=== PATIENT | male | born 1945 | race Caucasian/White ===

== ENCOUNTER 2019-12-20 07:09 | Outpatient (CLI) | payer MEDICARE, SELFPAY ==
[2019-12-20 08:28] LABS: Alanine Aminotransferase 20 U/L (4-50); Albumin Level 3.5 g/dL (3.5-5.1); Alkaline Phosphatase 110 U/L (38-126); Aspartate Amino Transferase 17 U/L (17-59); Bilirubin,Total 0.3 mg/dL (0.2-1.3); Blood Urea Nitrogen 22 mg/dL (9-20); Calcium 8.7 mg/dL (8.4-10.2); Carbon Dioxide 28 mmol/L (22-30); Chloride 100 mmol/L (98-107); Cholesterol 153 mg/dL (0-200); Estimated Glomerular Filt Rate 59; Glucose 299 mg/dL (75-110); HDL Direct 28 mg/dL; Potassium 3.4 mmol/L (3.4-5.0); Sodium 135 mmol/L (137-145); Triglycerides 185 mg/dL (<150)
[2019-12-20 08:39] LABS: LDL Cholesterol Direct 118 mg/dL
[2019-12-20 08:43] LABS: Hemoglobin A1C 12.8 % (<5.7)
== END 2019-12-20 07:10 | disposition home or self-care (01) ==
PROVIDERS: PCP Family Medicine; Visit Provider Family Medicine
DX: E78.00 Pure hypercholesterolemia, unspecified (principal); E11.65 Type 2 diabetes mellitus with hyperglycemia
CPT/HCPCS: 36415; 80053; 80061; 83036

== ENCOUNTER 2020-12-04 06:46 | Outpatient (CLI) | payer MEDICARE, SELFPAY ==
[2020-12-04 07:42] LABS: Alanine Aminotransferase 20 U/L (4-50); Albumin Level 3.4 g/dL (3.5-5.1); Alkaline Phosphatase 115 U/L (38-126); Anion Gap 10 mmol/L (8-16); Aspartate Amino Transferase 20 U/L (17-59); Bilirubin,Total 0.3 mg/dL (0.2-1.3); Blood Urea Nitrogen 20 mg/dL (9-20); Calcium 8.3 mg/dL (8.4-10.2); Carbon Dioxide 25 mmol/L (22-30); Chloride 98 mmol/L (98-107); Cholesterol 141 mg/dL (0-200); Estimated Glomerular Filt Rate > 60; Glucose 366 mg/dL (75-110); HDL Direct 27 mg/dL; Magnesium 1.7 mg/dL (1.6-2.3); Sodium 133 mmol/L (137-145); Triglycerides 193 mg/dL (<150)
[2020-12-04 07:52] LABS: LDL Cholesterol Direct 84 mg/dL
== END 2020-12-04 06:47 | disposition home or self-care (01) ==
PROVIDERS: PCP Family Medicine; Visit Provider Internal Medicine Interventional Cardiology
DX: E78.00 Pure hypercholesterolemia, unspecified (principal); I50.32 Chronic diastolic (congestive) heart failure; I11.0 Hypertensive heart disease with heart failure
CPT/HCPCS: 36415; 80053; 80061; 83735

== ENCOUNTER 2021-03-08 06:34 | Outpatient (CLI) | payer MEDICARE, SELFPAY ==
[2021-03-08 07:33] LABS: Alanine Aminotransferase 20 U/L (4-50); Albumin Level 3.6 g/dL (3.5-5.1); Alkaline Phosphatase 94 U/L (38-126); Anion Gap 6 mmol/L (8-16); Aspartate Amino Transferase 21 U/L (17-59); Bilirubin,Total 0.3 mg/dL (0.2-1.3); Blood Urea Nitrogen 19 mg/dL (9-20); Carbon Dioxide 25 mmol/L (22-30); Chloride 104 mmol/L (98-107); Estimated Glomerular Filt Rate 59; Glucose 249 mg/dL (75-110); Potassium 3.5 mmol/L (3.4-5.0); Sodium 135 mmol/L (137-145)
[2021-03-08 08:52] LABS: Hemoglobin A1C 11.6 % (<5.7)
== END 2021-03-08 06:35 | disposition home or self-care (01) ==
PROVIDERS: PCP Family Medicine; Visit Provider Family Medicine
DX: E11.65 Type 2 diabetes mellitus with hyperglycemia (principal)
CPT/HCPCS: 36415; 80053; 83036

== ENCOUNTER 2021-03-12 07:47 | Outpatient (CLI) | payer MEDICARE, SELFPAY ==
[2021-03-12 08:29] LABS: Alanine Aminotransferase 19 U/L (4-50); Albumin Level 3.7 g/dL (3.5-5.1); Alkaline Phosphatase 111 U/L (38-126); Anion Gap 9 mmol/L (8-16); Aspartate Amino Transferase 18 U/L (17-59); Bilirubin,Total 0.3 mg/dL (0.2-1.3); Blood Urea Nitrogen 23 mg/dL (9-20); Calcium 9.3 mg/dL (8.4-10.2); Carbon Dioxide 25 mmol/L (22-30); Chloride 101 mmol/L (98-107); Cholesterol 144 mg/dL (0-200); Estimated Glomerular Filt Rate 59; Glucose 327 mg/dL (75-110); HDL Direct 32 mg/dL; Magnesium 1.7 mg/dL (1.6-2.3); Sodium 135 mmol/L (137-145); Triglycerides 186 mg/dL (<150)
[2021-03-12 08:40] LABS: LDL Cholesterol Direct 74 mg/dL
== END 2021-03-12 07:48 | disposition home or self-care (01) ==
PROVIDERS: PCP Family Medicine; Visit Provider Internal Medicine Interventional Cardiology
DX: E78.00 Pure hypercholesterolemia, unspecified (principal); R60.0 Localized edema; I50.32 Chronic diastolic (congestive) heart failure
CPT/HCPCS: 36415; 80053; 80061; 83735

== ENCOUNTER 2021-09-24 06:46 | Outpatient (CLI) | payer MEDICARE, SELFPAY ==
[2021-09-24 08:42] LABS: Anion Gap 11 mmol/L (8-16); Blood Urea Nitrogen 19 mg/dL (9-20); Calcium 8.9 mg/dL (8.4-10.2); Carbon Dioxide 22 mmol/L (22-30); Chloride 103 mmol/L (98-107); Cholesterol 159 mg/dL (0-200); Estimated Glomerular Filt Rate > 60; Glucose 262 mg/dL (65-110); HDL Direct 32 mg/dL; Magnesium 1.7 mg/dL (1.6-2.3); Potassium 3.5 mmol/L (3.4-5.0); Sodium 136 mmol/L (137-145); Triglycerides 137 mg/dL (<150)
[2021-09-24 08:53] LABS: LDL Cholesterol Direct 99 mg/dL
== END 2021-09-24 06:47 | disposition home or self-care (01) ==
LOC: ANHLAB 06:51
PROVIDERS: PCP Family Medicine; Visit Provider Internal Medicine Interventional Cardiology
DX: E78.5 Hyperlipidemia, unspecified (principal); R60.0 Localized edema; I10 Essential (primary) hypertension
CPT/HCPCS: 36415; 80048; 80061; 83735

== ENCOUNTER 2021-11-22 06:41 | Outpatient (CLI) | payer MEDICARE, SELFPAY ==
[2021-11-22 08:21] LABS: Basophils Absolute Auto 0.1 K/mm3 (0.0-0.1); Basophils Percent Auto 1.1 % (0.2-1.2); Eosinophils Absolute Auto 0.2 K/mm3 (0-0.3); Eosinophils Percent Auto 2.2 % (0-4.4); Immature Granulocyte Absolute 0.02 K/mm3 (0.00-0.031); Immature Granulocyte Percent A 0.3 % (0-0.5); Lymphocytes Absolute Auto 1.39 K/mm3 (0.9-3.2); Lymphocytes Percent Auto 18.9 % (18.3-44.2); Mean Corpuscular HGB Conc 32.5 g/dl (32-36); Mean Corpuscular Hemoglobin 27.8 pg (26-34); Mean Corpuscular Volume 85.7 fl (80-100); Mean Platelet Volume 10.3 fl (7.4-10.4); Monocytes Absolute Auto 0.7 K/mm3 (0.1-0.6); Monocytes Percent Auto 9.5 % (2.6-8.5); Platelet Count Result 254 k/mm3 (150-375); Red Blood Count 4.67 M/mm3 (4.6-6.20); Red Cell Distribution Width 14.1 % (11.5-14.5); White Blood Count 7.4 K/mm3 (4.5-10.0)
[2021-11-22 08:27] LABS: Add Urine Microscopic? YES; Appearance Urine Clear (Clear); Bacteria Urine Trace /hpf; Bilirubin Urine Negative (Negative); Blood Urine Negative (Negative); Color Urine Yellow (Yellow); Glucose Urine UA 1+ mg/dL (Negative); Ketones Urine Negative (Negative); Leukocyte Esterase Ur Negative LEU/UL (Negative); Mucus Urine Rare /lpf; Nitrate Urine Negative (Negative); Protein Urine 2+ mg/dL (Negative); RBC Urine 0-2 /hpf (0-2); Specific Grav Ur 1.025 (1.001-1.035); Squamous Epithelial Cell Urine Rare /hpf (Few); WBC Urine 0-3 /hpf
[2021-11-22 08:36] LABS: Alanine Aminotransferase 24 U/L (4-50); Albumin Level 3.6 g/dL (3.5-5.1); Alkaline Phosphatase 108 U/L (38-126); Anion Gap 7 mmol/L (8-16); Aspartate Amino Transferase 22 U/L (17-59); Bilirubin,Total 0.4 mg/dL (0.2-1.3); Blood Urea Nitrogen 22 mg/dL (9-20); Calcium 8.6 mg/dL (8.4-10.2); Carbon Dioxide 24 mmol/L (22-30); Chloride 102 mmol/L (98-107); Cholesterol 138 mg/dL (0-200); Estimated Glomerular Filt Rate 54; Glucose 210 mg/dL (65-110); HDL Direct 31 mg/dL; Potassium 3.7 mmol/L (3.4-5.0); Sodium 133 mmol/L (137-145); Triglycerides 164 mg/dL (<150)
[2021-11-22 08:44] LABS: Creatinine Urine 281.5 mg/dL
[2021-11-22 08:46] LABS: LDL Cholesterol Direct 81 mg/dL
[2021-11-22 08:48] LABS: Hemoglobin A1C 11.1 % (<5.7)
[2021-11-22 09:25] LABS: MALB Creatinine Ratio 310.3 mg/g (0-30); Microalbumin Urine Random 873.5 mg/L (0-16.7)
== END 2021-11-22 06:42 | disposition home or self-care (01) ==
PROVIDERS: PCP Family Medicine; Visit Provider Family Medicine
DX: I11.0 Hypertensive heart disease with heart failure (principal); I50.32 Chronic diastolic (congestive) heart failure; E78.00 Pure hypercholesterolemia, unspecified; E11.65 Type 2 diabetes mellitus with hyperglycemia
CPT/HCPCS: 36415; 80053; 80061; 81001; 82043; 83036; 84443; 85025

== ENCOUNTER 2022-02-04 07:27 | Inpatient (IN) | payer MEDICARE, SELFPAY ==
[2022-02-04] VITALS (62 sets, daily range): BP systolic 146–197; BP diastolic 63–100; PULSE 66–101; RESP 13–22; TEMP 36.6–36.8; O2SAT 92–100
--- NOTE | ~2022-02-04 | CT_ITS ---
EXAMINATION: CT abdomen pelvis w con DATE: 02/04/2022 08:57 INDICATION: Generalized abdominal pain. Nausea, vomiting, and chills. TECHNIQUE: Computed tomography (CT) of the abdomen and pelvis was performed with 100 mL Omnipaque 350 intravenous contrast. Automated exposure control and iterative reconstruction technique were employe d. The dose-length product was 1364.73 mGy-cm. COMPARISON: CT abdomen and pelvis 06/06/2015 FINDINGS: The visualized portions of the lung bases demonstrate mild atelectasis. No pleural effusion . The heart size is normal. No pericardial effusion. The liver, gallbladder, spleen, pancreas, and ad renal glands are normal. There is cortical thinning of the kidneys. There is a 7 mm hyperdense mass i n right kidney upper pole. There are cysts in right kidney measuring up to 14 mm. There is fat strand ing at posterior aspect of right kidney, likely fat necrosis. There is a 1.9 cm mass of left kidney m easuring soft tissue attenuation. There are cysts in left kidney measuring up to 8 mm. There is a 2 m m nonobstructing stone in left kidney. There are brachytherapy seeds in the prostate, which is mildly enlarged. There is diverticulosis of the colon without evidence of diverticulitis. The appendix is n ormal. There are no dilated loops of bowel. There are no pathologically enlarged lymph nodes. There i s no free intraperitoneal fluid. There is a left inguinal hernia containing fat. There is severe lumb ar spondylosis. There is mild chronic anterior wedging of lower thoracic vertebral bodies. IMPRESSION: 1. 7 mm right kidney mass, which may be a hemorrhagic cyst, neoplasm, or focal sparing of cortical th inning. 2. 1.9 cm left kidney mass, which may be a hemorrhagic cyst or neoplasm. Abdomen CT without and with contrast is recommended. Reviewed, dictated and finalized at location B. IMPRESSION: 1. 7 mm right kidney mass, which may be a hemorrhagic cyst, neoplasm, or focal sparing of cortical thinning. 2. 1.9 cm left kidney mass, which may be a hemorrhagic cyst or neoplasm. Abdome n CT without and with contrast is recommended.
--- NOTE | ~2022-02-04 | CT_ITS ---
EXAMINATION: CT abdomen wo/w con DATE: 02/04/2022 11:27 INDICATION: Kidney mass. TECHNIQUE: Computed tomography (CT) of the abdomen was performed without and with 100 mL Omnipaque 35 0 intravenous contrast. Automated exposure control and iterative reconstruction technique were employ ed. The dose-length product was 1918.47 mGy-cm. COMPARISON: CT abdomen and pelvis 02/04/2022 FINDINGS: The visualized portions of the lung bases demonstrate mild atelectasis. No pleural effusion . The heart size is normal. There are coronary artery calcifications. No pericardial effusion. The li vidhya, gallbladder, spleen, pancreas, and adrenal glands are normal. There is a 7 mm enhancing exophyti c mass of right kidney upper pole. There is cortical thinning of the kidneys. There are cysts in the kidneys measuring up to 14 mm on the right. There is fat stranding at posterior aspect of right kidne y, likely fat necrosis. There is a 19 mm hemorrhagic cyst in left kidney. There are no dilated loops of bowel. There are no pathologically enlarged lymph nodes. There is no free intraperitoneal fluid. T here is severe lumbar spondylosis. IMPRESSION: 1. 7 mm exophytic enhancing mass in right kidney upper pole suspicious for renal cell carcinoma. Reviewed, dictated and finalized at location B. IMPRESSION: 1. 7 mm exophytic enhancing mass in right kidney upper pole suspicious for isabel l cell carcinoma.
--- NOTE | ~2022-02-04 | CT_ITS ---
EXAMINATION: CTA brain carotid DATE: 02/04/2022 20:25 INDICATION: Vertigo TECHNIQUE: Computed tomographic angiography (CTA) of the head was performed without and with 100 mL O mnipaque-350 intravenous contrast. CTA of the neck was performed with intravenous contrast. The dose- length product was 1921.46 mGy-cm. Maximum intensity projection and volume rendered 3D-reconstruction s were created by the technologist on a separate workstation. Automated exposure control and iterativ e reconstruction technique were employed. COMPARISON: None. FINDINGS: HEAD CTA: There is no acute intraparenchymal hemorrhage. No evidence of mass lesion. No evidence of a cute infarction. A small area of encephalomalacia in the right occipital lobe is consistent with prio r infarct. There is mild periventricular and subcortical hypodensity probably related to small vessel ischemic disease. There is mild prominence of the sulci and ventricles related to cerebral atrophy. Intracranial calcified cerebral atherosclerosis is noted. There are no extra-axial collections. There is no mass effect or midline shift. Changes in the right globe are likely from ocular lens surgery. The visualized sinuses and left mastoid air cells are well aerated. There is a right mastoid effusion . There is no significant stenosis of the basilar artery or posterior cerebral arteries. There is no si gnificant stenosis of the intracranial internal carotid arteries or the anterior or middle cerebral a rteries. The anterior communicating artery and posterior communicating arteries are normal. The poste rior communicating arteries are diminutive. There is no aneurysm. NECK CTA: The thyroid gland is unremarkable. The submandibular and parotid glands are symmetric. Ther e is no lymphadenopathy. There are no masses identified. A calcified right lower paratracheal lymph n odes consistent with granulomatous disease. The airway is unremarkable. There are no osseous abnormal ities. The superior mediastinum is unremarkable. Extrapleural fat is noted posterior laterally on the left. There is 0% stenosis of the proximal right internal carotid artery relative to normal distal artery l umen diameter (NASCET criteria). There is 0% stenosis of the proximal left internal carotid artery re lative to normal distal artery lumen diameter. IMPRESSION: 1. Area of prior right occipital infarct without acute intracranial abnormality. Unremarkable head CT A. 2. 0% stenosis of the proximal right internal carotid artery relative to normal distal artery lumen d iameter (NASCET criteria). 3. 0% stenosis of the proximal left internal carotid artery relative to normal distal artery lumen di ameter. 4. Right mastoid effusion. Reviewed, dictated and finalized at location F. IMPRESSION: 1. Area of prior right occipital infarct without acute intracranial abnormality . Unremarkable head CTA. 2. 0% stenosis of the proximal right internal carotid artery relative to normal distal artery lumen diameter (NASCET criteria). 3. 0% stenosis of the proximal left internal carotid artery relative to normal distal artery lumen diameter. 4. Right mastoid effusion.
--- NOTE | ~2022-02-04 | US_ITS ---
EXAMINATION: US carotid duplex BI DATE: 02/06/2022 11:15 INDICATION: Acute infarcts TECHNIQUE: Grayscale, color Doppler, and pulsed Doppler images of the cervical carotid arteries were obtained. The degree of vessel stenosis is placed in one of the following categories: normal, <50%, 5 0-69%, >=70% but less than near-occlusion, near-occlusion, or total occlusion. Note that percent sten osis relative to normal distal artery lumen diameter is indirectly measured from velocity measurement s as described by Tan, et al. Radiology 2003; 229:340-346. COMPARISON: None. FINDINGS: RIGHT: The right common carotid artery (CCA) peak systolic velocity (PSV) is 67 cm/s. The right internal car otid artery (ICA) PSV is 52 cm/s. The right ICA end-diastolic velocity (EDV) is 17 cm/s. The right IC A/CCA PSV ratio is 0.8. Grayscale and color Doppler images yield an estimate of <50% diameter reducti on from plaque in the ICA. The external carotid artery (ECA) PSV is 84 cm/s. There is antegrade flow in the right vertebral artery. LEFT: The left CCA PSV is 81 cm/s. The left ICA PSV is 75 cm/s. The left ICA EDV is 20 cm/s. The left ICA/C CA PSV ratio is 0.9. Grayscale and color Doppler images yield an estimate of <50% diameter reduction from plaque in the ICA. The ECA PSV is 70 cm/s. There is antegrade flow in the left vertebral artery. IMPRESSION: 1. <50% stenosis in the right internal carotid artery. 2. <50% stenosis in the left internal carotid artery. Reviewed, dictated and finalized at location A.
--- NOTE | ~2022-02-04 | MR_ITS ---
EXAMINATION: MR brain/brain stem wo con DATE: 02/05/2022 13:43 INDICATION: Vertigo TECHNIQUE: Magnetic resonance imaging (MRI) of the brain and brainstem was performed without intraven ous contrast. Sequences included sagittal and axial T1-weighted SE, axial diffusion-weighted FS SE, a xial T2*-weighted GRE, axial T2-weighted FLAIR, and axial T2-weighted FSE. Apparent diffusion coeffic ient (ADC) maps were created. COMPARISON: Brain CT dated 02/04/2022 FINDINGS: 2 small foci of restricted diffusion at the periphery of the right cerebellar hemisphere consistent w ith acute infarcts. There are a couple small foci of T2 hyperintense encephalomalacia in the left cer ebellar hemisphere consistent with additional chronic infarcts. Small region of encephalomalacia con sistent with chronic infarct at the right occipital lobe. No intracranial hemorrhage or abnormal intr acranial mass lesion. There are scattered areas of nonspecific increased T2-weighted signal intensity in the cerebral white matter, predominantly involving the deep and periventricular white matter. The re are no intraparenchymal signal abnormalities seen on the other pulse sequences. The ventricles are symmetric and normal in size. There are no abnormal extra-axial fluid collections. Flow voids are se en in the cerebral arteries on the T2-weighted sequences consistent with their expected patency. Visu alized orbits and soft tissues are unremarkable. IMPRESSION: 1. A couple small acute infarcts in the right cerebellar hemisphere. 2. Small old infarct in the right occipital lobe and a couple additional small old infarcts in the le ft cerebellar hemisphere. 3. Mild scattered scattered white matter T2 hyperintensity which is within normal limits for age and likely sequela of chronic small vessel ischemic disease. Reviewed, dictated and finalized at location A. IMPRESSION: 1. A couple small acute infarcts in the right cerebellar hemisphere. 2. Small old infarct in the right occipital lobe and a couple additional small old infarcts in the left cerebellar hemisphere. 3. Mild scattered scattered white matter T2 hyperintensity which is within norm al limits for age and likely sequela of chronic small vessel ischemic disease.
--- NOTE | 2022-02-04 07:30 | ECG_ITS ---
Measurements Intervals [place] Rate: 78 P: 0 TX: 190 QRS: -1 QRSD: 92 T: 75 QT: 394 QTc: 451 Interpretive Statements SINUS RHYTHM NONSPECIFIC T-WAVE ABNORMALITY ABNORMAL ECG NO PREVIOUS ECG AVAILABLE FOR COMPARISON Electronically Signed On 02-04-2022 15:08:07 CDT by Bubba Carver M.D.
--- NOTE | 2022-02-04 07:38 | PC.NURSE ---
ERP at bedside. Pt now states he is in fact having abdominal pain and shortness of breath. Respirations non-labored. SpO2 98% on room air.
[2022-02-04 07:39] LABS: Glucose Point of Care 316 mg/dl (65-105)
--- NOTE | 2022-02-04 07:42 | ED.GENADULT ---
HPI - General Adult General Chief complaint: Nausea/Vomiting/Diarrhea Stated complaint: chills, vomiting Time Seen by Provider: 02/04/22 07:29 Source: patient and RN notes reviewed Mode of arrival: ambulatory Limitations: no limitations History of Present Illness HPI narrative: 76-year-old male presenting to the emergency department for evaluation of cute onset of nausea vomiting and generalized abdominal pain. Patient states that he woke up this morning and was having nausea and abdominal pain. Patient states at that time he was also having some shortness of breath. Patient denies any associated chest pain. Patient does report associated dizziness. Patient reports the abdominal pain as being more central. Patient does report prior history of hernia repair as a child. Related Data Allergies Allergy/AdvReac Type Severity Reaction Status Date / Time No Known Allergies Allergy Verified 02/04/22 14:45 Review of Systems Review of Systems: CONSTITUTIONAL: Generalized weakness EYES: Denies visual changes, redness, or discharge. ENT: Denies rhinorrhea, congestion, sore throat, or otalgia. CARDIOVASCULAR: Denies chest pain, palpitations, or edema. RESPIRATORY: Denies cough or dyspnea. GASTROINTESTINAL: Nausea vomiting without diarrhea. He does have generalized abdominal pain. GENITOURINARY: Denies dysuria or hematuria. SKIN: Denies rash or itching. MUSCULOSKELETAL: Denies back pain, joint pain, or myalgia. NEUROLOGIC: Denies headache, numbness, or weakness. [facility] Family History Family History (Updated 02/04/22 @ 15:07 by Naty Sol RN) Mother Cerebrovascular accident Sibling Cancer Father Lung cancer Social History Social History Smoking status: Never smoker Second hand tobacco smoke exposure: Yes Alcohol intake: never Substance use: never Substance use type: does not use Spiritual care concerns: No Exam Narrative: APPEARANCE: Well appearing, no pain, no distress, well-nourished. HEAD: normocephalic, atraumatic. EYES: PERRLA/EOMI, conjunctivae clear. NOSE: Normal no drainage NECK: Supple. No adenopathy, no masses. RESPIRATORY: Airway patent, respirations nonlabored. Clear to auscultation bilaterally, no rales, rhonchi, wheezing. CARDIOVASCULAR: Regular rate and rhythm without murmurs rubs or gallops. ABDOMINAL: Generalized abdominal pain. Normal bowel sounds. No peritonitis. MUSCULOSKELETAL: Moves all extremities. Strength/ROM intact, No edema, No calf tenderness. NEURO: Alert. Cranial nerves II through XII intact. grossly intact. SKIN: Warm, dry. Normal Color Course Course Emergency Course: CT scan showed a renal mass concerning for adenocarcinoma. No other acute intra-abdominal findings. Attempted to ambulate the patient but he felt too weak. Case discussed with hospitalist and patient was admitted for generalized weakness. Vital Signs Vital signs: Vital Signs Temperature 97.8 F 02/04/22 07:31 Pulse Rate 80 02/04/22 07:31 Respiratory Rate 17 02/04/22 07:31 Pulse Oximetry 97 02/04/22 07:31 Temperature 97.8 F 02/04/22 07:31 Pulse Rate 83 02/04/22 14:01 Respiratory Rate 18 02/04/22 14:01 Blood Pressure 158/81 H 02/04/22 14:01 Pulse Oximetry 95 02/04/22 14:01 Medical Decision Making Vital Signs Vital Signs: Vital Signs Temperature 97.8 F 02/04/22 07:31 Pulse Rate 80 02/04/22 07:31 Respiratory Rate 17 02/04/22 07:31 Pulse Oximetry 97 02/04/22 07:31 Temperature 97.8 F 02/04/22 07:31 Pulse Rate 83 02/04/22 14:01 Respiratory Rate 18 02/04/22 14:01 Blood Pressure 158/81 H 02/04/22 14:01 Pulse Oximetry 95 02/04/22 14:01 Lab Data Lab results reviewed: Yes I reviewed the patient's lab results. Result diagrams: 02/04/22 07:38 02/04/22 07:38 Labs: Lab Results 02/04/22 02/04/22 02/04/22 Range/Units 07:37 07:38 07:38 WBC 8.4 (4.5-10.0) K/mm3 RBC 5.28 (4.6-6.20) M/mm3
[2022-02-04] MEDS: HYDROmorphone HCL INJ (*CRX) 1 MG/ML SYR 0.5 MG IV PUSH (07:45)
[2022-02-04] MEDS: ONDANSETRON INJ 4 MG/2 ML VIAL IV PUSH ×2 (07:45→15:14)
[2022-02-04] MEDS: SODIUM CHLORIDE 0.9% IV 500 ML 999 ML IV CONT (07:48)
[2022-02-04 08:00] LABS: Basophils Absolute Auto 0.1 K/mm3 (0.0-0.1); Basophils Percent Auto 0.7 % (0.2-1.2); Eosinophils Absolute Auto 0.1 K/mm3 (0-0.3); Eosinophils Percent Auto 1.1 % (0-4.4); Hematocrit 43.9 % (42.0-52.0); Hemoglobin 14.6 g/dL (14.0-18.0); Immature Granulocyte Absolute 0.03 K/mm3 (0.00-0.031); Immature Granulocyte Percent A 0.4 % (0-0.5); Lymphocytes Absolute Auto 1.55 K/mm3 (0.9-3.2); Lymphocytes Percent Auto 18.4 % (18.3-44.2); Mean Corpuscular HGB Conc 33.3 g/dl (32-36); Mean Corpuscular Hemoglobin 27.7 pg (26-34); Mean Corpuscular Volume 83.1 fl (80-100); Monocytes Absolute Auto 0.7 K/mm3 (0.1-0.6); Monocytes Percent Auto 7.7 % (2.6-8.5); Neutrophils Absolute Auto 6.1 K/mm3 (1.3-6.7); Neutrophils Percent Auto 71.7 % (45.5-73.1); Platelet Count Result 301 k/mm3 (150-375); Red Blood Count 5.28 M/mm3 (4.6-6.20); Red Cell Distribution Width 13.2 % (11.5-14.5); White Blood Count 8.4 K/mm3 (4.5-10.0)
[2022-02-04 08:17] LABS: Alanine Aminotransferase 25 U/L (4-50); Albumin Level 4.1 g/dL (3.5-5.1); Alkaline Phosphatase 123 U/L (38-126); Anion Gap 10 mmol/L (8-16); Aspartate Amino Transferase 25 U/L (17-59); Bilirubin,Total 0.4 mg/dL (0.2-1.3); Blood Urea Nitrogen 21 mg/dL (9-20); Calcium 8.8 mg/dL (8.4-10.2); Carbon Dioxide 23 mmol/L (22-30); Chloride 104 mmol/L (98-107); Estimated CRCL calculation 68 ml/min; Estimated Glomerular Filt Rate > 60; Glucose 303 mg/dL (65-110); Potassium 3.8 mmol/L (3.4-5.0); Sodium 137 mmol/L (137-145)
[2022-02-04 08:36] LABS: Influenza A QL RT-PCR Negative (Negative); Influenza B QL RT-PCR Negative (Negative); SARS-CoV-2 RNA PCR Negative
[2022-02-04 08:54] LABS: Add Urine Microscopic? YES; Appearance Urine Clear (Clear); Bilirubin Urine Negative (Negative); Blood Urine Negative (Negative); Color Urine Yellow (Yellow); Glucose Urine UA 3+ mg/dL (Negative); Ketones Urine Trace mg/dL (Negative); Leukocyte Esterase Ur Negative LEU/UL (Negative); Mucus Urine Rare /lpf; Nitrate Urine Negative (Negative); Protein Urine 2+ mg/dL (Negative); RBC Urine 0-2 /hpf (0-2); Specific Grav Ur 1.023 (1.001-1.035); Urobilinogen Urine Negative mg/dL (<2.0); WBC Urine 0-3 /hpf
--- NOTE | 2022-02-04 09:24 | PC.NURSE ---
Xray at bedside.
--- NOTE | 2022-02-04 11:05 | PC.NURSE ---
CT states they were instructed to wait [address] before taking pt for repeat. lead technical writer states they will take pt in approximately 30 minutes.
--- NOTE | 2022-02-04 12:19 | PC.NURSE ---
FSBS 216.Dr Vu made aware. Insulin held per verbal order.
[2022-02-04 12:21] LABS: Glucose Point of Care 216 mg/dl (65-105)
--- NOTE | 2022-02-04 14:51 | ADMGEN ---
This patient, Dasha Pedersen, was admitted to Medical Room 253-01. Patient/family oriented to hospital policies and general routines including ID bracelet, bed and alarms, visiting hours, pain management, procedures, bathroom and other care routines, personal items, smoking policy, room service/diet, and visiting hours. Information on how to activate the Rapid Response Team has been discussed. Patient/Family are encouraged to report perceived risks to care and to ask questions if they do not understand what they are told or what they should do.
[2022-02-04] MEDS: SODIUM CHLORIDE 0.9% IV 1,000 ML 75 ML IV CONT (15:14)
[2022-02-04 16:24] LABS: Glucose Point of Care 211 mg/dl (65-105)
[2022-02-04] MEDS: ACETAMINOPHEN 325 MG TABLET 650 MG PO (17:38)
--- NOTE | 2022-02-04 19:00 | PM.IMHP ---
H&P: HPI History of Present Illness Date/Time: 02/04/22 19:00 Chief Complaint: Nausea, vomiting, weakness. Narrative: This is a pleasant 76-year-old male with history of stroke in 2000, hypertension, dyslipidemia, and insulin-dependent diabetes who presented to the emergency department via private vehicle from home for evaluation of nausea, vomiting, and weakness. He felt fine yesterday and spent most of the day in his home office doing work. He went to [employer] for dinner however he only had a couple of bites of burger and a few [place] fries before he threw them away as they just did not taste right. He felt okay when he went to bed but was wakened from sleep around midnight with extreme nausea. He got up to the bathroom but had difficulties getting there ?because I was bumping into everything? but when he finally made to the bathroom where he reports having a pretty significant amount of emesis and 1 loose stool. He has difficulties describing what exactly was happening when he was walking to the bathroom and he denies feeling significantly lightheaded and it sounds as though he more so was suffering from vertigo. He got up several times thereafter with nausea and vomiting and reports vomiting undigested food from the night before early this morning. He also reports diffuse, mild abdominal discomfort that he cannot further describe and that continues. This morning he got up at around 06:00 and upon getting out of bed he slid onto his buttocks onto the floor because he was off balance and fell weak. He was able to get himself up however and in fact drove himself to the hospital. He was afebrile on arrival to the emergency department. Blood pressures had been consistently elevated in the 150s to 180 systolic since that time. Labs were essentially unremarkable aside from hyperglycemia with a random glucose of 303. Urine showed 2+ protein and 3+ glucose. He tested negative for influenza and SARS-CoV-[address] of the abdomen and pelvis showed a 7 mm right kidney mass and 1.9 cm left kidney mass, and a subsequent CT with and without contrast showed a 7 mm exophytic enhancing mass in the right kidney upper pole suspicious for renal cell carcinoma. Despite these incidental findings and a relatively normal workup otherwise, he was unable to be discharged home as he continues to feel ?just not right and a little out of it.? Unfortunately he has difficulties further qualifying that. At this time he feels weak and tired. When I had him go from a supine to sitting position he told me ?I am just not in a good way right now and not feeling good? but again he could not describe any specific symptoms. He denies headache, neck ache, visual changes, slurred speech, facial droop, focal weakness, paresthesias, chest pain, pleuritic pain, palpitations, syncope, near syncope, hematemesis, melena, hematochezia, and dysuria. Review of Systems Review of Systems: Twelve systems were reviewed. No sick contacts. Reports mild sinus congestion in the morning which clears throughout the day. No dysphagia or concerns for aspiration. He had a colonoscopy with polypectomy this past Monday but he has not noticed any blood in his stool since that time. No fever, chills, or sweats. His GERD is not any different than baseline. Reports chronic tinnitus which is unchanged. No exertional chest pain. He reports a nondescript discomfort throughout his abdomen up into the throat but again states that is different than his GERD. No blurry vision, polydipsia, or polyuria. Except as documented, all other systems were reviewed and are negative. [facility] Past Medical History Medical History (Updated 02/04/22 @ 20:37 by Yoly Heart PA-C) Cerebrovascular accident (10/2000) Gastric ulcer Gastroesophageal reflux disease Hypertension Insulin dependent type 2 diabetes mellitus Irritable bowel syndrome Obstructive sleep apnea on CPAP Osteoarthritis Prostate cancer Status post radiation. Treadmill stress test negativ
[2022-02-04 20:12] LABS: Lipase 37 U/L (23-300)
[2022-02-04 20:25] LABS: Troponin I 0.018 ng/mL (0.000-0.034)
[2022-02-04 20:28] LABS: Glucose Point of Care 169 mg/dl (65-105)
[2022-02-04 20:29] LABS: Hemoglobin A1C 9.7 % (<5.7)
[2022-02-04] MEDS: amLODIPine BESYLATE 2.5 MG TABLET PO (21:14)
[2022-02-04] MEDS: LOSARTAN POTASSIUM 50 MG TABLET PO (21:15)
[2022-02-04] MEDS: METOPROLOL SUCCINATE EXT REL 50 MG TABCR 150 MG PO (21:36)
[2022-02-04 23:12] LABS: Glucose Point of Care 157 mg/dl (65-105)
[2022-02-04 23:58] LABS: Troponin I 0.022 ng/mL (0.000-0.034)
[2022-02-05] VITALS (14 sets, daily range): BP systolic 134–157; BP diastolic 55–81; PULSE 60–85; RESP 16–20; TEMP 35.9–36.7; O2SAT 96–98
[2022-02-05 02:23] LABS: Hematocrit 40.1 % (42.0-52.0); Mean Corpuscular HGB Conc 32.4 g/dl (32-36); Mean Corpuscular Hemoglobin 27.7 pg (26-34); Mean Corpuscular Volume 85.3 fl (80-100); Mean Platelet Volume 10.2 fl (7.4-10.4); Platelet Count Result 272 k/mm3 (150-375); Red Cell Distribution Width 13.4 % (11.5-14.5); White Blood Count 8.6 K/mm3 (4.5-10.0)
[2022-02-05 02:42] LABS: Anion Gap 7 mmol/L (8-16); Blood Urea Nitrogen 14 mg/dL (9-20); Calcium 8.2 mg/dL (8.4-10.2); Carbon Dioxide 23 mmol/L (22-30); Chloride 104 mmol/L (98-107); Estimated CRCL calculation 75 ml/min; Estimated Glomerular Filt Rate > 60; Glucose 178 mg/dL (65-110); Magnesium 1.8 mg/dL (1.6-2.3); Potassium 3.6 mmol/L (3.4-5.0); Sodium 134 mmol/L (137-145)
[2022-02-05 02:49] LABS: Troponin I 0.024 ng/mL (0.000-0.034)
[2022-02-05 07:52] LABS: Glucose Point of Care 200 mg/dl (65-105)
[2022-02-05] MEDS: CHLORTHALIDONE 25 MG TABLET PO (07:56)
[2022-02-05] MEDS: LOSARTAN POTASSIUM 50 MG TABLET PO ×2 (07:56→16:21)
[2022-02-05] MEDS: GLIMEPIRIDE 2 MG TABLET 4 MG PO (07:56)
[2022-02-05] MEDS: calcium polycarbophiL 625 MG TABLET PO ×2 (07:56→16:20)
[2022-02-05] MEDS: ATORVASTATIN 40 MG TABLET PO (07:57)
[2022-02-05] MEDS: POTASSIUM CHLORIDE 10 MEQ TABLET.ER PO (07:57)
[2022-02-05] MEDS: amLODIPine BESYLATE 2.5 MG TABLET PO ×2 (07:57→11:19)
[2022-02-05] MEDS: PANTOPRAZOLE 40 MG TABLET PO (07:57)
[2022-02-05] MEDS: ASPIRIN 81 MG CHEWABLE TABLET PO (07:57)
[2022-02-05] MEDS: LORATADINE 10 MG TABLET PO (07:58)
[2022-02-05] MEDS: FERROUS SULFATE 324 MG TABLET PO ×2 (07:58→16:20)
[2022-02-05] MEDS: METOPROLOL SUCCINATE EXT REL 50 MG TABCR 150 MG PO (07:58)
[2022-02-05] MEDS: INSULIN GLARGINE (*BKC) 100 UNITS/ML 48 UNITS SUB-Q (08:01)
[2022-02-05] MEDS: ONDANSETRON INJ 4 MG/2 ML VIAL IV PUSH ×2 (09:51→20:40)
--- NOTE | 2022-02-05 10:36 | PC.NURSE ---
ortho bp's done this shift, supine 97% ra 71 144/96, sitting 99% ra 71 175/89, and standing 186/97 77 97% ra
--- NOTE | 2022-02-05 11:02 | PM.IMPN ---
Progress Note: A&P Assessment and Plan (1) Vertigo: Code(s): R42 - Dizziness and giddiness Status: Acute Assessment and Plan: The patient is having a difficult time describing exactly what he is feeling but it sounds as though he has had vertigo since he was wakened from sleep last night around midnight. When I had him go from a supine to a sitting position he reported recurrence of symptoms and I had to lie him back down and he felt better. he has not noted to be tachycardic during the orthostatic vitals however is noted to be on metoprolol which might have mass to this. CT head and CTA of brain and carotids were unremarkable. Will further evaluate this for posterior circulation issue with MRI brain. continue to monitor on telemetry no arrhythmias noted Orthostatic was negative his bit hypertensive rather Add meclizine for possible labyrinthitis related to his chronic sinus issues. CT head does note right mastoid effusion. Will empirically give antibiotics for upper respiratory /sinus infection Compazine p.r.n. for nausea (2) Nausea & vomiting: Qualifiers: Vomiting type: unspecified Qualified Code(s): R11.2 - Nausea with vomiting, unspecified Code(s): R11.2 - Nausea with vomiting, unspecified Status: Acute Assessment and Plan: Patient reports that his dinner last night from a local restaurant did not taste right and he only had a few bites before throwing out. I suppose his nausea and vomiting could be related to under prepared or poorly prepared food. Conversely if he indeed is having significant vertigo this could also be causing the nausea and vomiting. Continue supportive care. CT abdomen and pelvis did show any acute findings except for right renal mass 7 mm in size needs to followed up as an outpatient basis with urologist (3) General weakness: Code(s): R53.1 - Weakness Status: Acute Assessment and Plan: Related to above. No focal findings on exam. Initiate fall precautions. Will order PT OT (4) Renal mass: Code(s): N28.89 - Other specified disorders of kidney and ureter Status: Acute Assessment and Plan: CT shows a 7 mm exophytic enhancing mass in the right kidney upper pole suspicious for renal cell carcinoma. Will need follow-up with Urology as an outpatient. (5) Insulin dependent type 2 diabetes mellitus: Code(s): E11.9 - Type 2 diabetes mellitus without complications; Z79.4 - [facility] (current) use of insulin Status: Acute Assessment and Plan: Random glucose this morning was over 300. Continue basal insulin. Initiate sliding scale insulin, Accu-Cheks, and hypoglycemic protocol. A1c at 9.7 (6) Hypertension: Code(s): I10 - Essential (primary) hypertension Status: Acute Assessment and Plan: Pressures have been running high consistently since arrival. He did not receive his morning antihypertensives, however. Continue home medication and monitor closely. Adjustments will be made accordingly depending on his trends. Will increase amlodipine to 5 mg Hold chlorthalidone due to possible dehydration (7) Obstructive sleep apnea on CPAP: Code(s): G47.33 - Obstructive sleep apnea (adult) (pediatric); Z99.89 - Dependence on other enabling machines and devices Status: Acute Assessment and Plan: CPAP will be provided for the patient to use while hospitalized. (8) Gastroesophageal reflux disease: Code(s): K21.9 - Gastro-esophageal reflux disease without esophagitis Status: Acute Assessment and Plan: Patient denies that his symptoms now are similar to those he experiences with GERD. CT showed no acute findings. (9) Abdominal pain: Code(s): R10.9 - Unspecified abdominal pain Status: Acute Assessment and Plan: Patient has mild tenderness to palpation throughout the abdomen without focal findings. CT showed no acute findings
[2022-02-05] MEDS: MECLIZINE HCL 25 MG TABLET PO ×2 (11:18→16:21)
[2022-02-05] MEDS: SODIUM CHLORIDE 0.9% IV 1,000 ML 75 ML IV CONT (11:18)
--- NOTE | 2022-02-05 11:56 | PC.NURSE ---
MRI screening form completed for MRI w and wo contrast. Pt states has had reaction to contrast dye. Pt will need to be premedicated prior to going down for MRI, Md Santos called and informed.
[2022-02-05] MEDS: PROCHLORPERAZINE EDISYLATE 10 MG/2 ML VIAL IV PUSH (12:06)
[2022-02-05 12:22] LABS: Glucose Point of Care 188 mg/dl (65-105)
--- NOTE | 2022-02-05 12:46 | PC.NURSE ---
pt started on compazine and meclizine this shift for c/o dizziness and nausea.
[2022-02-05 12:53] LABS: Lactic Acid Reflex 3.1 mmol/L (0.7-2.1)
--- NOTE | 2022-02-05 13:10 | PC.NURSE ---
Pt at MRI
--- NOTE | 2022-02-05 13:13 | PCOTNOTE ---
Attempted OT evaluation; pt. out of room for testing. Will attempt again tomorrow as able.
--- NOTE | 2022-02-05 13:55 | PC.NURSE ---
Pt back from MRI, NS 500ml/hr bolus ordered, increase NS continuous IV infusing to 100ml/hr, redraw lactic at 1600 per MD Santos r/t elevated lactic acid 3.1 at 1200 today.
[2022-02-05] MEDS: SODIUM CHLORIDE 0.9% IV 500 ML IV CONT (14:55)
[2022-02-05] MEDS: ACETAMINOPHEN 325 MG TABLET 650 MG PO ×2 (15:00→20:38)
--- NOTE | 2022-02-05 15:24 | PC.NURSE ---
Reported MRI results to MD Santos, 1.A couple small acute infarcts in the right cerebellar hemisphere. 2. Small old infarct in the right occipital lobe and a couple additional small old infarcts in the left cerebellar hemisphere. 3. Mild scattered scattered white matter T2 hyperintensity which is within normal limits for age and likely sequela of chronic small vessel ischemic disease.
[2022-02-05 15:38] LABS: Reflex Lactic Acid Yes or No Add Lactic
--- NOTE | 2022-02-05 15:40 | PC.NURSE ---
A couple small acute infarcts in the right cerebellar hemisphere. 2. Small old infarct in the right occipital lobe and a couple additional small old infarcts in the left cerebellar hemisphere. 3. Mild scattered scattered white matter T2 hyperintensity which is within normal limits for age and likely sequela of chronic small vessel ischemic disease. Reported MRI of brain to MD Baez, N.o plavix 75 mg po daily start today, carotic dopplers, Ct angio of brain, and echocardiogram, discussed ordered with MD Santos, MD Santos stated ct angio of brain and echocardiogram already done 02/04/22.
[2022-02-05] MEDS: CLOPIDOGREL BISULFATE 75 MG TABLET PO (15:49)
--- NOTE | 2022-02-05 16:21 | PC.NURSE ---
mri resulted called family to inform them, MD Santos came to room to speech with family per family request, family had left.
[2022-02-05 16:22] LABS: Lactic Acid Reflex 1.9 mmol/L (0.7-2.1)
[2022-02-05 16:49] LABS: Glucose Point of Care 129 mg/dl (65-105)
[2022-02-05] MEDS: AMOXICILLIN/CLAVULANATE K 875-125 MG TAB 1 TABLET PO (20:38)
[2022-02-05] MEDS: FLUTICASONE PROPIONATE 0.05% NA SPR 16 GM BTL (*BKC) 1 SPRAY NASAL (20:38)
[2022-02-05] MEDS: INSULIN GLARGINE (*BKC) 100 UNITS/ML 25 UNITS SUB-Q (20:43)
[2022-02-05 21:21] LABS: Glucose Point of Care 141 mg/dl (65-105)
[2022-02-06] VITALS (18 sets, daily range): BP systolic 142–188; BP diastolic 59–75; PULSE 61–83; RESP 18–20; TEMP 36.1–37.3; O2SAT 95–98
[2022-02-06] MEDS: SODIUM CHLORIDE 0.9% IV 1,000 ML 100 ML IV CONT ×2 (00:07→10:27)
[2022-02-06 06:28] LABS: Basophils Absolute Auto 0.1 K/mm3 (0.0-0.1); Basophils Percent Auto 0.6 % (0.2-1.2); Eosinophils Absolute Auto 0.1 K/mm3 (0-0.3); Eosinophils Percent Auto 0.8 % (0-4.4); Hematocrit 40.3 % (42.0-52.0); Hemoglobin 13.5 g/dL (14.0-18.0); Immature Granulocyte Absolute 0.02 K/mm3 (0.00-0.031); Immature Granulocyte Percent A 0.2 % (0-0.5); Lymphocytes Absolute Auto 1.31 K/mm3 (0.9-3.2); Lymphocytes Percent Auto 13.6 % (18.3-44.2); Mean Corpuscular HGB Conc 33.5 g/dl (32-36); Mean Corpuscular Hemoglobin 27.9 pg (26-34); Mean Corpuscular Volume 83.3 fl (80-100); Mean Platelet Volume 10.2 fl (7.4-10.4); Monocytes Absolute Auto 0.8 K/mm3 (0.1-0.6); Monocytes Percent Auto 8.3 % (2.6-8.5); Neutrophils Absolute Auto 7.4 K/mm3 (1.3-6.7); Neutrophils Percent Auto 76.5 % (45.5-73.1); Platelet Count Result 267 k/mm3 (150-375); Red Blood Count 4.84 M/mm3 (4.6-6.20); Red Cell Distribution Width 13.3 % (11.5-14.5); White Blood Count 9.7 K/mm3 (4.5-10.0)
[2022-02-06 06:38] LABS: Alanine Aminotransferase 18 U/L (4-50); Albumin Level 3.2 g/dL (3.5-5.1); Alkaline Phosphatase 85 U/L (38-126); Anion Gap 5 mmol/L (8-16); Aspartate Amino Transferase 22 U/L (17-59); Bilirubin,Total 0.3 mg/dL (0.2-1.3); Blood Urea Nitrogen 16 mg/dL (9-20); Calcium 8.1 mg/dL (8.4-10.2); Carbon Dioxide 26 mmol/L (22-30); Chloride 105 mmol/L (98-107); Estimated CRCL calculation 66 ml/min; Estimated Glomerular Filt Rate > 60; Glucose 109 mg/dL (65-110); Magnesium 1.9 mg/dL (1.6-2.3); Potassium 3.2 mmol/L (3.4-5.0); Sodium 136 mmol/L (137-145)
[2022-02-06 08:09] LABS: Glucose Point of Care 132 mg/dl (65-105)
[2022-02-06] MEDS: amLODIPine BESYLATE 5 MG TABLET PO ×2 (08:52→16:38)
[2022-02-06] MEDS: calcium polycarbophiL 625 MG TABLET PO ×2 (08:53→16:39)
[2022-02-06] MEDS: ASPIRIN 81 MG CHEWABLE TABLET PO (08:53)
[2022-02-06] MEDS: CHLORTHALIDONE 25 MG TABLET PO (08:53)
[2022-02-06] MEDS: ATORVASTATIN 40 MG TABLET PO (08:53)
[2022-02-06] MEDS: FERROUS SULFATE 324 MG TABLET PO ×2 (08:54→16:39)
[2022-02-06] MEDS: LOSARTAN POTASSIUM 50 MG TABLET PO ×2 (08:55→16:39)
[2022-02-06] MEDS: METOPROLOL SUCCINATE EXT REL 50 MG TABCR 150 MG PO (08:55)
[2022-02-06] MEDS: MECLIZINE HCL 25 MG TABLET PO ×3 (08:55→16:39)
[2022-02-06] MEDS: GLIMEPIRIDE 2 MG TABLET 4 MG PO (08:55)
[2022-02-06] MEDS: FLUTICASONE PROPIONATE 0.05% NA SPR 16 GM BTL (*BKC) 1 SPRAY NASAL ×2 (08:56→20:59)
[2022-02-06] MEDS: PANTOPRAZOLE 40 MG TABLET PO (08:56)
[2022-02-06] MEDS: POTASSIUM CHLORIDE 10 MEQ TABLET.ER PO (08:56)
[2022-02-06] MEDS: INSULIN GLARGINE (*BKC) 100 UNITS/ML 48 UNITS SUB-Q (09:03)
[2022-02-06] MEDS: AMOXICILLIN/CLAVULANATE K 875-125 MG TAB 1 TABLET PO ×2 (11:24→20:59)
[2022-02-06] MEDS: CLOPIDOGREL BISULFATE 75 MG TABLET PO (11:24)
[2022-02-06] MEDS: LORATADINE 10 MG TABLET PO (11:27)
[2022-02-06 11:35] LABS: Glucose Point of Care 99 mg/dl (65-105)
--- NOTE | 2022-02-06 11:36 | WPDNEURCNPN ---
Assessment and Plan Additional Plan 1 positional vertigo 2 possibility of orthostatic hyper 3 consider the possibility of posterior circulation dysfunction for which studies have been ordered and further recommendation: Consult date: 02/06/22 HPI: Dasha Pedersen is a 76 year old maleAdmitted to the hospital through the emergency room acute onset nausea vomiting and generalized abdominal pain reported in the ER he woke up in the morning with these complaints he was also experiencing some difficulties in breathing but gave no history of associated chest discomfort, dizzy, he gave no history of being allergic to any medication , his past history was consistent with no alcohol no smoking, initial evaluation documented normal vital signs fairly nonfocal neurological examination but labs investigations documented hypoglycemia and abdomen and pelvis CT scan 7mm right kidney mass raising the possibility of hemorrhagic cyst versus neoplasm or focal cortical thinning in addition to 1.9cm left kidney mass again with the same unsure, patient has ongoing history of 1. Hypertension 2. Dyslipidemia 3. Insulin-dependent diabetes mellitus For GERD with history of gastric ulcer 5 irritable bowel syndrome 6 obstructive sleep apnea on CPAP 7 osteoarthritis 8 history of prostate cancer patient has undergone multiple surgeries including bilateral total knee replacement.. , Review of Systems Review of Systems: All systems reviewed & are unremarkable except as noted in HPI and below PMFSH Past Medical History Medical History Cerebrovascular accident (10/2000) Gastric ulcer Gastroesophageal reflux disease Hypertension Insulin dependent type 2 diabetes mellitus Irritable bowel syndrome Obstructive sleep apnea on CPAP Osteoarthritis Prostate cancer Status post radiation. Treadmill stress test negative for angina pectoris (09/2002) Surgical History Surgical History History of arthroscopy of both knees History of bilateral knee replacement History of colonoscopy with polypectomy History of hemorrhoidectomy History of inguinal hernia repair History of tonsillectomy Family History Family History Mother Cerebrovascular accident Sibling Cancer Father Lung cancer Diabetes mellitus Social History Social History Social History: Surrogate decision maker: Nitesh Pedersen, son. Code status: Full code. Smoking status: Never smoker Second hand tobacco smoke exposure: Yes Alcohol intake: never Substance use: never Substance use type: does not use Additional living arrangements comments: Lives in his own home in [place]. Additional occupation/education comments: [employer]. Spiritual care concerns: No Meds Home Medications and Allergies Home Medications Medication Instructions Recorded Confirmed Type amlodipine 2.5 mg PO DAILY 02/04/22 02/04/22 History aspirin [Baby Aspirin] 81 mg PO DAILY 02/04/22 02/04/22 History atorvastatin 40 mg PO DAILY 02/04/22 02/04/22 History calcium polycarbophil [FiberCon] 625 mg PO BID 02/04/22 02/04/22 History cetirizine [Zyrtec] 10 mg PO DAILY 02/04/22 02/04/22 History chlorthalidone 25 mg PO DAILY 02/04/22 02/04/22 History esomeprazole magnesium 40 mg PO DAILY 02/04/22 02/04/22 History ferrous sulfate 325 mg PO BID 02/04/22 02/04/22 History glimepiride 4 mg PO DAILY 02/04/22 02/04/22 History insulin degludec [Tresiba 25 unit SUBCUT HS 02/04/22 02/04/22 History FlexTouch U-200] insulin degludec [Tresiba 48 unit SUBCUT DAILY 02/04/22 02/04/22 History FlexTouch U-200] losartan 50 mg PO BID 02/04/22 02/04/22 History metoprolol succinate 150 mg PO DAILY 02/04/22 02/04/22 History potassium chloride 10 meq PO DAILY 02/04/22 02/04/22 History semaglutide [Ozempic] 1 mg SUBCUT WEEKLY 02/04/22 04
--- NOTE | 2022-02-06 13:51 | PM.IMPN ---
Progress Note: A&P Assessment and Plan (1) Vertigo: Code(s): R42 - Dizziness and giddiness Status: Acute Assessment and Plan: The patient is having a difficult time describing exactly what he is feeling but it sounds as though he has had vertigo since he was wakened from sleep last night around midnight. When I had him go from a supine to a sitting position he reported recurrence of symptoms and I had to lie him back down and he felt better. he has not noted to be tachycardic during the orthostatic vitals however is noted to be on metoprolol which might have mass to this. CT head and CTA of brain and carotids were unremarkable. Will further evaluate this for posterior circulation issue with MRI brain. continue to monitor on telemetry no arrhythmias noted Orthostatic was negative his bit hypertensive rather Add meclizine for possible labyrinthitis related to his chronic sinus issues. CT head does note right mastoid effusion. Will empirically give antibiotics for upper respiratory /sinus infection Compazine p.r.n. for nausea MRI brain did come back positive for cerebellar stroke in the right cerebellar hemisphere likely causing his vertigo Stroke workup in process echocardiogram pending CTA did not show any significant carotid stenosis Carotid Doppler less than 50% bilaterally On aspirin and Plavix On statin will check his lipid profile in a.m. Neurology has been consulted and is following Will continue to monitor for elevated intracranial pressure due to cerebellar stroke He does mention he sees thread clipper for some rhythm problems. However unclear what kind a rhythm problem he had He is on telemetry monitoring and has been sinus rhythm. Will continue to monitor. He did have previous right occipital lobe stroke and left cerebellar hemisphere stroke in the past as noted in the MRI brain (2) Nausea & vomiting: Qualifiers: Vomiting type: unspecified Qualified Code(s): R11.2 - Nausea with vomiting, unspecified Code(s): R11.2 - Nausea with vomiting, unspecified Status: Acute Assessment and Plan: Patient reports that his dinner last night from a local restaurant did not taste right and he only had a few bites before throwing out. I suppose his nausea and vomiting could be related to under prepared or poorly prepared food. Conversely if he indeed is having significant vertigo this could also be causing the nausea and vomiting. Continue supportive care. CT abdomen and pelvis did show any acute findings except for right renal mass 7 mm in size needs to followed up as an outpatient basis with urologist (3) General weakness: Code(s): R53.1 - Weakness Status: Acute Assessment and Plan: Related to above. No focal findings on exam. Initiate fall precautions. PT OT ordered (4) Renal mass: Code(s): N28.89 - Other specified disorders of kidney and ureter Status: Acute Assessment and Plan: CT shows a 7 mm exophytic enhancing mass in the right kidney upper pole suspicious for renal cell carcinoma. Will need follow-up with Urology as an outpatient. (5) Insulin dependent type 2 diabetes mellitus: Code(s): E11.9 - Type 2 diabetes mellitus without complications; Z79.4 - half-way (current) use of insulin Status: Acute Assessment and Plan: Random glucose this morning was over 300. Continue basal insulin. Initiate sliding scale insulin, Accu-Cheks, and hypoglycemic protocol. A1c at 9.7 (6) Hypertension: Code(s): I10 - Essential (primary) hypertension Status: Acute Assessment and Plan: Pressures have been running high consistently since arrival. He did not receive his morning antihypertensives, however. Continue home medication and monitor closely. Adjustments will be made accordingly depending on his trends. On chlorthalidone and losartan Will increase amlodipine 5 mg twice daily (7) Obstructive sleep apnea on
[2022-02-06 16:30] LABS: Glucose Point of Care 116 mg/dl (65-105)
[2022-02-06] MEDS: INSULIN GLARGINE (*BKC) 100 UNITS/ML 25 UNITS SUB-Q (20:54)
[2022-02-06 21:04] LABS: Glucose Point of Care 95 mg/dl (65-105)
[2022-02-07] VITALS (15 sets, daily range): BP systolic 137–169; BP diastolic 63–87; PULSE 62–76; RESP 14–21; TEMP 36.4–37.1; O2SAT 95–100
--- NOTE | 2022-02-07 | ECHO_ITS ---
Patient Info Name: Dasha Pedersen Age: 76 years : 1945 Gender: Male Ht: 66 in Wt: 251 lbs BSA: 2.36 m2 HR: 65 bpm BP: 153 / 74 mmHg Heart Rhythm: Sinus Rhythm Exam Date: 02/07/2022 11:14 AM Exam Location: [facility] Patient Status: Outpatient Admit Date: 02/04/2022 Staff Ordering Physician: Calvin Santos MD Ditching Machine Operating Engineer: John Santos, JANIE, RT Attending Provider: Calvin Santos MD Exam Type: CA echo doppler color flow Study Info Indications I63.219 - Cerebral infarction due to unspecified occlusion or stenosis of unspecified vertebral arteries Complete two-dimensional, color flow and Doppler transthoracic echocardiogram is performed. Strain analysis performed. Summary 1. Complete two-dimensional, color flow and Doppler transthoracic echocardiogram is performed. 2. Left ventricular chamber dimension is normal. 3. Left ventricular systolic function is normal, estimated at 50-55%. 4. Left atrial chamber dimension is moderately enlarged. 5. Trivial aortic regurgitation and mild mitral regurgitation. Left Ventricle Left ventricular chamber dimension is normal. Left ventricular systolic function is normal, estimated at 50-55%. The left ventricular diastolic function is grade I diastolic dysfunction. Right Ventricle Right ventricular chamber dimension is normal. Left Atria Left atrial chamber dimension is moderately enlarged. Right Atria Right atrial chamber dimension is normal. Aortic Valve The aortic valve is trileaflet. There is mild aortic valve sclerosis. There is trace aortic valve regurgitation. Pulmonic Valve The pulmonic valve is not well visualized. Mitral Valve The mitral valve has normal leaflets. There is mild mitral valve regurgitation. The mitral valve annulus is mildly calcified. Tricuspid Valve The tricuspid valve leaflets are normal. There is trace tricuspid valve regurgitation. Pericardium/Pleural The pericardium appears normal. Aorta The aortic root size at the sinus of Valsalva is normal. Left Ventricular Outflow Tract Name Value Normal LVOT 2D LVOT Diameter 2.2 cm LVOT Doppler LVOT Peak Gradient 2 mmHg LVOT Mean Gradient 1 mmHg LVOT VTI 17 cm LVOT VTI/AV VTI Ratio 0.8 LVOT Stroke Volume 65 ml LVOT CO 4.2 l/min LVOT CI 1.8 l/min/m2 Mitral Valve Name Value Normal MV Doppler MV Decel [place] 206 cm/s2 MV PHT 86 ms MV Area (PHT) 2.5 cm2 4.0-5.0 MV Diastolic Function MV E Peak Velocity 61 cm
[2022-02-07] MEDS: SODIUM CHLORIDE 0.9% IV 1,000 ML 50 ML IV CONT ×2 (01:50→20:56)
[2022-02-07 04:11] LABS: Glucose Point of Care 168 mg/dl (65-105)
[2022-02-07 05:51] LABS: Basophils Absolute Auto 0.1 K/mm3 (0.0-0.1); Basophils Percent Auto 1.1 % (0.2-1.2); Eosinophils Absolute Auto 0.2 K/mm3 (0-0.3); Eosinophils Percent Auto 2.2 % (0-4.4); Hematocrit 43.3 % (42.0-52.0); Hemoglobin 13.9 g/dL (14.0-18.0); Immature Granulocyte Absolute 0.02 K/mm3 (0.00-0.031); Immature Granulocyte Percent A 0.2 % (0-0.5); Lymphocytes Absolute Auto 1.38 K/mm3 (0.9-3.2); Lymphocytes Percent Auto 17.2 % (18.3-44.2); Mean Corpuscular HGB Conc 32.1 g/dl (32-36); Mean Corpuscular Hemoglobin 27.1 pg (26-34); Mean Corpuscular Volume 84.6 fl (80-100); Mean Platelet Volume 10.3 fl (7.4-10.4); Monocytes Absolute Auto 0.9 K/mm3 (0.1-0.6); Monocytes Percent Auto 11.7 % (2.6-8.5); Neutrophils Absolute Auto 5.4 K/mm3 (1.3-6.7); Neutrophils Percent Auto 67.6 % (45.5-73.1); Platelet Count Result 285 k/mm3 (150-375); Red Blood Count 5.12 M/mm3 (4.6-6.20); Red Cell Distribution Width 13.5 % (11.5-14.5)
[2022-02-07 06:02] LABS: Alanine Aminotransferase 18 U/L (4-50); Albumin Level 3.3 g/dL (3.5-5.1); Alkaline Phosphatase 76 U/L (38-126); Anion Gap 4 mmol/L (8-16); Aspartate Amino Transferase 31 U/L (17-59); Bilirubin,Total 0.6 mg/dL (0.2-1.3); Blood Urea Nitrogen 16 mg/dL (9-20); Calcium 8.3 mg/dL (8.4-10.2); Carbon Dioxide 27 mmol/L (22-30); Chloride 103 mmol/L (98-107); Cholesterol 153 mg/dL (0-200); Estimated CRCL calculation 66 ml/min; Estimated Glomerular Filt Rate > 60; Glucose 129 mg/dL (65-110); HDL Direct 30 mg/dL; Magnesium 1.8 mg/dL (1.6-2.3); Potassium 3.4 mmol/L (3.4-5.0); Sodium 134 mmol/L (137-145); Triglycerides 123 mg/dL (<150)
[2022-02-07 06:10] LABS: LDL Cholesterol Direct 85 mg/dL
[2022-02-07 07:31] LABS: Glucose Point of Care 115 mg/dl (65-105)
[2022-02-07] MEDS: METOPROLOL SUCCINATE EXT REL 50 MG TABCR 150 MG PO (08:16)
[2022-02-07] MEDS: MECLIZINE HCL 25 MG TABLET PO ×3 (08:18→16:39)
[2022-02-07] MEDS: FERROUS SULFATE 324 MG TABLET PO ×2 (08:18→16:40)
[2022-02-07] MEDS: GLIMEPIRIDE 2 MG TABLET 4 MG PO (08:18)
[2022-02-07] MEDS: LOSARTAN POTASSIUM 50 MG TABLET PO ×2 (08:18→16:41)
[2022-02-07] MEDS: POTASSIUM CHLORIDE 10 MEQ TABLET.ER PO (08:19)
[2022-02-07] MEDS: CHLORTHALIDONE 25 MG TABLET PO (08:19)
[2022-02-07] MEDS: amLODIPine BESYLATE 5 MG TABLET PO ×2 (08:19→16:41)
[2022-02-07] MEDS: calcium polycarbophiL 625 MG TABLET PO ×2 (08:19→16:40)
[2022-02-07] MEDS: AMOXICILLIN/CLAVULANATE K 875-125 MG TAB 1 TABLET PO ×2 (08:19→20:55)
[2022-02-07] MEDS: ATORVASTATIN 40 MG TABLET PO (08:19)
[2022-02-07] MEDS: LORATADINE 10 MG TABLET PO (08:20)
[2022-02-07] MEDS: CLOPIDOGREL BISULFATE 75 MG TABLET PO (08:20)
[2022-02-07] MEDS: ASPIRIN 81 MG CHEWABLE TABLET PO (08:20)
[2022-02-07] MEDS: PANTOPRAZOLE 40 MG TABLET PO (08:20)
[2022-02-07] MEDS: FLUTICASONE PROPIONATE 0.05% NA SPR 16 GM BTL (*BKC) 1 SPRAY NASAL ×2 (08:21→20:55)
[2022-02-07] MEDS: INSULIN GLARGINE (*BKC) 100 UNITS/ML 48 UNITS SUB-Q (08:22)
[2022-02-07] MEDS: ONDANSETRON INJ 4 MG/2 ML VIAL IV PUSH (08:32)
[2022-02-07 11:27] LABS: Glucose Point of Care 176 mg/dl (65-105)
--- NOTE | 2022-02-07 11:55 | PCCCNOTE ---
On 02/07/22, the student, [Jia Guy ], provided care and completed [facility] documentation on this patient. I have reviewed the student's documentation and agree with the findings.
[2022-02-07 16:32] LABS: Glucose Point of Care 80 mg/dl (65-105)
[2022-02-07 17:04] LABS: Glucose Point of Care 154 mg/dl (65-105)
--- NOTE | 2022-02-07 18:09 | PM.IMPN ---
Progress Note: A&P Assessment and Plan (1) Vertigo: Code(s): R42 - Dizziness and giddiness Status: Acute Assessment and Plan: The patient is having a difficult time describing exactly what he is feeling but it sounds as though he has had vertigo since he was wakened from sleep last night around midnight. When I had him go from a supine to a sitting position he reported recurrence of symptoms and I had to lie him back down and he felt better. he has not noted to be tachycardic during the orthostatic vitals however is noted to be on metoprolol which might have mass to this. CT head and CTA of brain and carotids were unremarkable. Will further evaluate this for posterior circulation issue with MRI brain. continue to monitor on telemetry no arrhythmias noted Orthostatic was negative his bit hypertensive rather Add meclizine for possible labyrinthitis related to his chronic sinus issues. CT head does note right mastoid effusion. Will empirically give antibiotics for upper respiratory /sinus infection Compazine p.r.n. for nausea MRI brain did come back positive for cerebellar stroke in the right cerebellar hemisphere likely causing his vertigo Stroke workup in process echocardiogram pending CTA did not show any significant carotid stenosis Carotid Doppler less than 50% bilaterally On aspirin and Plavix On statin will check his lipid profile in a.m. Neurology has been consulted and is following Will continue to monitor for elevated intracranial pressure due to cerebellar stroke He does mention he sees canine enforcement officer for some rhythm problems. However unclear what kind a rhythm problem he had He is on telemetry monitoring and has been sinus rhythm. Will continue to monitor. He did have previous right occipital lobe stroke and left cerebellar hemisphere stroke in the past as noted in the MRI brain Discussed with the Neurology. 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 This will be assessed and started as an outpatient basis. (2) Nausea & vomiting: Qualifiers: Vomiting type: unspecified Qualified Code(s): R11.2 - Nausea with vomiting, unspecified Code(s): R11.2 - Nausea with vomiting, unspecified Status: Acute Assessment and Plan: Patient reports that his dinner last night from a local restaurant did not taste right and he only had a few bites before throwing out. I suppose his nausea and vomiting could be related to under prepared or poorly prepared food. Conversely if he indeed is having significant vertigo this could also be causing the nausea and vomiting. Continue supportive care. CT abdomen and pelvis did show any acute findings except for right renal mass 7 mm in size needs to followed up as an outpatient basis with urologist (3) General weakness: Code(s): R53.1 - Weakness Status: Acute Assessment and Plan: Related to above. No focal findings on exam. Initiate fall precautions. PT OT ordered (4) Renal mass: Code(s): N28.89 - Other specified disorders of kidney and ureter Status: Acute Assessment and Plan: CT shows a 7 mm exophytic enhancing mass in the right kidney upper pole suspicious for renal cell carcinoma. Will need follow-up with Urology as an outpatient. (5) Insulin dependent type 2 diabetes mellitus: Code(s): E11.9 - Type 2 diabetes mellitus without complications; Z79.4 - terminal carman (current) use of insulin Status: Acute Assessment and Plan: Random glucose this morning was over 300. Continue basal insulin. Initiate sliding scale insulin, Accu-Cheks, and hypoglycemic protocol. A1c at 9.7 (6) Hypertension: Code(s): I10 - Essential (primary) hypertension Status: Acute Assessment and Plan: Pressures have been running high consistently since arrival. He did not receive his morning antihypertensives, however. Continue home medication and monitor cl
[2022-02-07 20:28] LABS: Glucose Point of Care 124 mg/dl (65-105)
[2022-02-08] VITALS (17 sets, daily range): BP systolic 145–177; BP diastolic 62–88; PULSE 56–101; RESP 14–20; TEMP 36.1–37.2; O2SAT 95–98
[2022-02-08 07:31] LABS: Glucose Point of Care 126 mg/dl (65-105)
[2022-02-08] MEDS: FERROUS SULFATE 324 MG TABLET PO ×2 (08:30→17:01)
[2022-02-08] MEDS: AMOXICILLIN/CLAVULANATE K 875-125 MG TAB 1 TABLET PO ×2 (08:31→20:44)
[2022-02-08] MEDS: MECLIZINE HCL 25 MG TABLET PO ×3 (08:31→17:02)
[2022-02-08] MEDS: POTASSIUM CHLORIDE 10 MEQ TABLET.ER PO (08:31)
[2022-02-08] MEDS: ASPIRIN 81 MG CHEWABLE TABLET PO (08:31)
[2022-02-08] MEDS: calcium polycarbophiL 625 MG TABLET PO ×2 (08:31→17:01)
[2022-02-08] MEDS: CLOPIDOGREL BISULFATE 75 MG TABLET PO (08:32)
[2022-02-08] MEDS: amLODIPine BESYLATE 5 MG TABLET PO ×2 (08:32→17:01)
[2022-02-08] MEDS: PANTOPRAZOLE 40 MG TABLET PO (08:32)
[2022-02-08] MEDS: METOPROLOL SUCCINATE EXT REL 50 MG TABCR 150 MG PO (08:32)
[2022-02-08] MEDS: ATORVASTATIN 40 MG TABLET PO (08:32)
[2022-02-08] MEDS: GLIMEPIRIDE 2 MG TABLET 4 MG PO (08:33)
[2022-02-08] MEDS: LORATADINE 10 MG TABLET PO (08:33)
[2022-02-08] MEDS: CHLORTHALIDONE 25 MG TABLET PO (08:33)
[2022-02-08] MEDS: LOSARTAN POTASSIUM 50 MG TABLET PO ×2 (08:33→17:02)
[2022-02-08] MEDS: FLUTICASONE PROPIONATE 0.05% NA SPR 16 GM BTL (*BKC) 1 SPRAY NASAL ×2 (08:34→20:44)
[2022-02-08] MEDS: INSULIN GLARGINE (*BKC) 100 UNITS/ML 48 UNITS SUB-Q (08:39)
--- NOTE | 2022-02-08 09:42 | ECG_ITS ---
Measurements Intervals [place] Rate: 66 P: 4 CT: 193 QRS: -6 QRSD: 86 T: 241 QT: 403 QTc: 425 Interpretive Statements SINUS RHYTHM WITH FREQUENT VENTRICULAR PREMATURE COMPLEXES IN A BIGEMINAL PATTERN COMPARED TO ECG 02/04/2022 07:33:35 LEFT VENTRICULAR HYPERTROPHY NOW PRESENT ST (T WAVE) DEVIATION NOW PRESENT FREQUENT PVCS ARE NEW Electronically Signed On 02-09-2022 13:28:37 CDT by Rehana Hess M.D.
--- NOTE | 2022-02-08 11:22 | PCOTNOTE ---
All documentation completed by Naty Rodas on 02/07/22 was completed as a certified undertaker assistant versus student [employer]. All coursework and certification testing was completed and passed prior to this date.
--- NOTE | 2022-02-08 11:37 | PC.NURSE ---
On 02/08/22 [employer] Student Smith Velarde provided care to this patient. She documented care and physical assessment. I have reviewed her assessment and agree with her documentation.
[2022-02-08 11:43] LABS: Glucose Point of Care 188 mg/dl (65-105)
--- NOTE | 2022-02-08 12:21 | WPDNEUROPN ---
Progress Note: A&P Additional Plan will benefit from echocardiogram Subjective Date/time seen: 02/08/22 12:21 admitted to the ER for the acute symptomatology of general in nature but considering possibility of positional vertigo further evaluation was carried out, routine lab is normal though the blood sugar remained on the upper limits an MRI of the brain documented a small acute infarct in right cerebellar hemisphere in addition to small old infarct in right occipital lobe and old infarct in left cerebellar hemisphere as well, head neck CTA was normal in addition 7mm enhancing mass in the right kidney upper pole Objective Data Vital Signs Vital Signs: Vital Signs - 24 hr 02/07/22 14:00 02/07/22 16:00 02/07/22 20:00 Temperature 36.5 C Pulse Rate 64 62 68 Respiratory Rate 18 Blood Pressure 137/78 Pulse Oximetry 97 02/07/22 21:00 02/07/22 22:00 02/07/22 22:05 Temperature 36.4 C L 37.1 C Pulse Rate 62 62 Respiratory Rate 21 H 20 Blood Pressure 169/87 H 153/77 H Pulse Oximetry 96 100 98 02/07/22 22:10 02/08/22 00:00 02/08/22 02:50 Temperature Pulse Rate 62 69 Respiratory Rate 15 14 Blood Pressure Pulse Oximetry 95 02/08/22 04:00 02/08/22 06:00 02/08/22 08:00 Temperature 36.1 C L Pulse Rate 62 56 L 75 Respiratory Rate 20 Blood Pressure 152/88 H Pulse Oximetry 98 02/08/22 08:27 02/08/22 08:30 02/08/22 08:32 Temperature Pulse Rate 80 80 Respiratory Rate Blood Pressure 165/63 H Pulse Oximetry 97 96 Intake/Output Intake/Output: Intake & Output 02/05/22 02/06/22 02/07/22 02/08/22 23:59 23:59 23:59 23:59 Intake Total 1040 3904 3510 720 Output Total 5545 3100 2750 900 Balance -4535 804 760 -180 Meds/Results Medications: Active Medications Generic Name Dose Route Start Last Admin Trade Name Freq PRN Reason Stop Dose Admin Acetaminophen 650 mg 02/05/22 14:53 02/05/22 20:38 Acetaminophen 325 Mg Tablet PO 650 mg Q6H PRN Administration Mild Pain (1-3) or Fever Amlodipine Besylate 5 mg 02/06/22 17:00 02/08/22 08:32 Amlodipine Besylate 5 Mg Tablet PO 5 mg BID MUKUL Administration Amoxicillin/Clavulanate Potassium 1 tablet 02/05/22 21:00 02/08/22 08:31 Amoxicillin/Clavulanate K 875-125 Mg Tab PO 1 tablet Q12HR MUKUL Administration Aspirin 81 mg 02/05/22 09:00 02/08/22 08:31 Aspirin 81 Mg Chewable Tablet PO 81 mg DAILY MUKUL Administration Atorvastatin Calcium 40 mg 02/05/22 09:00 02/08/22 08:32 Atorvastatin 40 Mg Tablet PO 40 mg DAILY MUKUL Administration Calcium Polycarbophil 625 mg 02/05/22 09:00 02/08/22 08:31 Calcium Polycarbophil 625 Mg Tablet PO 625 mg BID MUKUL Administration Chlorthalidone 25 mg 02/05/22 09:00 02/08/22 08:33 Chlorthalidone 25 Mg Tablet PO 25 mg DAILY MUKUL Administration Clopidogrel Bisulfate 75 mg 02/05/22 15:33 02/08/22 08:32 Clopidogrel Bisulfate 75 Mg Tablet PO 75 mg QAM MUKUL Administration Dextrose 12.5 gm 02/04/22 19:41 Dextrose 50% 25 Gm/50 Ml Syringe IV PUSH PRN PRN Hypoglycemia Protocol Ferrous Sulfate 324 mg 02/05/22 09:00 02/08/22 08:30 Ferrous Sulfate 324 Mg Tablet PO 324 mg BID MUKUL Administration Fluticasone Propionate 1 spray 02/05/22 21:00 02/08/22 08:34 Fluticasone Propionate 0.05% Na Spr 16 Gm Btl (*Bkc) NASAL 1 spray Q12HR MUKUL Administration Glimepiride 4 mg 02/05/22 09:00 02/08/22 08:33 Glimepiride 2 Mg Tablet PO 4 mg DAILY MUKUL Administration Glucagon 1 mg 02/04/22 19:41 Glucagon For Inj 1 Mg Vial IM PRN PRN Hypoglycemia Protocol Glucose 15 gm 02/04/22 19:41 Glucose Oral Gel 15 Gm Of Glucse In 37.5 Gm Tube PO PRN PRN Hypoglycemia Protocol Dextrose 1,000 mls @ 100 mls/hr 02/04/22 19:41 Dextrose 5% 1,000 Ml IVPB PRN PRN Hypoglycemia Protocol Insulin Aspart 2 - 5 units 02/05/22 08:00 02/08/22 11:42
--- NOTE | 2022-02-08 12:45 | PCOTNOTE ---
Attempted to work with pt., BP supine 154/71 influencing moving EOB ~20 seconds prior to stating extreme unwell feeling including dizziness and nausea BP 162/87, HR 62. Pt. unable to participate on this date.
--- NOTE | 2022-02-08 13:40 | PM.IMPN ---
Progress Note: A&P Assessment and Plan (1) Vertigo: Code(s): R42 - Dizziness and giddiness Status: Acute Assessment and Plan: The patient is having a difficult time describing exactly what he is feeling but it sounds as though he has had vertigo since he was wakened from sleep last night around midnight. When I had him go from a supine to a sitting position he reported recurrence of symptoms and I had to lie him back down and he felt better. he has not noted to be tachycardic during the orthostatic vitals however is noted to be on metoprolol which might have mass to this. CT head and CTA of brain and carotids were unremarkable. Will further evaluate this for posterior circulation issue with MRI brain. continue to monitor on telemetry no arrhythmias noted Orthostatic was negative his bit hypertensive rather Add meclizine for possible labyrinthitis related to his chronic sinus issues. CT head does note right mastoid effusion. Will empirically give antibiotics for upper respiratory /sinus infection Compazine p.r.n. 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 Goal LDL less than 70 will uptitrate atorvastatin to 80 mg Neurology has been consulted and is following continue to monitor for elevated intracranial pressure due to cerebellar stroke He does mention he sees nip wrapper for some rhythm problems. However unclear what kind a rhythm problem he had He is on telemetry monitoring and has been sinus rhythm. Will continue to monitor. He did have previous right occipital lobe stroke and left cerebellar hemisphere stroke in the past as noted in the MRI brain Discussed with the Neurology. 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 This will be assessed and started as an outpatient basis. With risk of fall due to his ongoing vertigo/dizziness his is not be a candidate for anticoagulation at this time and will be assessed as an outpatient basis. (2) Nausea & vomiting: Qualifiers: Vomiting type: unspecified Qualified Code(s): R11.2 - Nausea with vomiting, unspecified Code(s): R11.2 - Nausea with vomiting, unspecified Status: Acute Assessment and Plan: Patient reports that his dinner last night from a local restaurant did not taste right and he only had a few bites before throwing out. I suppose his nausea and vomiting could be related to under prepared or poorly prepared food. Conversely if he indeed is having significant vertigo this could also be causing the nausea and vomiting. Continue supportive care. CT abdomen and pelvis did show any acute findings except for right renal mass 7 mm in size needs to followed up as an outpatient basis with urologist (3) General weakness: Code(s): R53.1 - Weakness Status: Acute Assessment and Plan: Related to above. No focal findings on exam. Initiate fall precautions. PT OT ordered (4) Renal mass: Code(s): N28.89 - Other specified disorders of kidney and ureter Status: Acute Assessment and Plan: CT shows a 7 mm exophytic enhancing mass in the right kidney upper pole suspicious for renal cell carcinoma. Will need follow-up with Urology as an outpatient. (5) Insulin dependent type 2 diabetes mellitus: Code(s): E11.9 - Type 2 diabetes mellitus without complications; Z79.4 - [facility] (current) use of insulin Status: Acute Assessment and Plan: Random glucose this morning was over 300. Continue basal insulin. Initiate sliding scale insulin, Accu-Cheks, and hypoglycemic protocol. A1c at 9.7 (6) Hypertension: Code(s): I10 - Essential (primary) hypertension
[2022-02-08] MEDS: ONDANSETRON INJ 4 MG/2 ML VIAL IV PUSH (14:23)
[2022-02-08] MEDS: ACETAMINOPHEN 325 MG TABLET 650 MG PO (14:24)
[2022-02-08 16:21] LABS: Glucose Point of Care 143 mg/dl (65-105)
[2022-02-08] MEDS: hydrALAZINE HCL 25 MG TABLET PO (17:01)
[2022-02-08] MEDS: INSULIN GLARGINE (*BKC) 100 UNITS/ML 25 UNITS SUB-Q (20:45)
[2022-02-08 21:03] LABS: Glucose Point of Care 177 mg/dl (65-105)
[2022-02-09] VITALS (16 sets, daily range): BP systolic 131–176; BP diastolic 58–84; PULSE 60–79; RESP 14–18; TEMP 36.4–37.1; O2SAT 94–97
[2022-02-09 05:40] LABS: Potassium 3.2 mmol/L (3.4-5.0)
[2022-02-09 07:31] LABS: Glucose Point of Care 148 mg/dl (65-105)
--- NOTE | 2022-02-09 07:50 | PM.IMPN ---
Progress Note: A&P Additional Plan (1) Vertigo: Code(s): R42 - Dizziness and giddiness Status: Acute Assessment and Plan: -negative orthostatic vitals. -continue meclizine for possible labyrinthitis related to his chronic sinus issues. -given the CT head showing right mastoid effusion, he is empirically on antibiotics for upper respiratory /sinus infection -Compazine p.r.n. 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 Goal LDL less than 70 will up-titrate atorvastatin to 80 mg -Neurology has been consulted and is following -continue to monitor for elevated intracranial pressure due to cerebellar stroke -He did mention he sees spring maker for some rhythm problems. However unclear what kind a rhythm problem he had He is on telemetry monitoring and has been sinus rhythm. Will continue to monitor. He did have previous right occipital lobe stroke and left cerebellar hemisphere stroke in the past as noted in the MRI brain. 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 This will be assessed and started as an outpatient basis. With risk of fall due to his ongoing vertigo/dizziness his is not be a candidate for anticoagulation at this time and will be assessed as an outpatient basis. -PT/OT. (2) Nausea & vomiting: Qualifiers: Vomiting type: unspecified Qualified Code(s): R11.2 - Nausea with vomiting, unspecified Code(s): R11.2 - Nausea with vomiting, unspecified Status: Acute Assessment and Plan: -likely related to posterior circulation stroke. -continue IV Zofran PRN. (3) General weakness: Code(s): R53.1 - Weakness Status: Acute Assessment and Plan: Related to new and previous strokes. No focal findings on exam. On fall precautions. Continue PT OT (4) Renal mass: Code(s): N28.89 - Other specified disorders of kidney and ureter Status: Acute Assessment and Plan: CT shows a 7 mm exophytic enhancing mass in the right kidney upper pole suspicious for renal cell carcinoma. Follow-up with Urology as an outpatient. (5) Insulin dependent type 2 diabetes mellitus: Code(s): E11.9 - Type 2 diabetes mellitus without complications; Z79.4 - longterm (current) use of insulin Status: Acute Assessment and Plan: fasting glucose this morning is 148. Continue basal insulin and sliding scale insulin, Accu-Cheks, and hypoglycemic protocol. A1c at 9.7 (6) Hypertension: Code(s): I10 - Essential (primary) hypertension Status: Acute Assessment and Plan: Continue home medication and monitor closely. Adjustments will be made accordingly depending on his trends. On chlorthalidone and losartan On amlodipine 5 mg twice daily and hydralazine 25 mg 3 times a day (7) Obstructive sleep apnea on CPAP: Code(s): G47.33 - Obstructive sleep apnea (adult) (pediatric); Z99.89 - Dependence on other enabling machines and devices Status: Acute Assessment and Plan: CPAP provided for the patient to use while hospitalized. (8) Gastroesophageal reflux disease: Code(s): K21.9 - Gastro-esophageal reflux disease without esophagitis Status: Acute Assessment and Plan: Patient denies that his symptoms now are similar to those he experiences with GERD. CT showed no acute findings. (9) Abdominal pain: Code(s): R10.9 - Unspecified abdominal pain Status: Acute Assessment and Plan: Patient has mild tenderness to palpation throughout the abdomen without focal findings. CT showed no acute findings to corroborate with reports of abdominal discomfort. May be relat
[2022-02-09] MEDS: ATORVASTATIN 40 MG TABLET 80 MG PO (08:52)
[2022-02-09] MEDS: METOPROLOL SUCCINATE EXT REL 50 MG TABCR 150 MG PO (08:53)
[2022-02-09] MEDS: MECLIZINE HCL 25 MG TABLET PO ×3 (08:53→16:13)
[2022-02-09] MEDS: amLODIPine BESYLATE 5 MG TABLET PO ×2 (08:53→16:12)
[2022-02-09] MEDS: PANTOPRAZOLE 40 MG TABLET PO (08:53)
[2022-02-09] MEDS: GLIMEPIRIDE 2 MG TABLET 4 MG PO (08:53)
[2022-02-09] MEDS: LORATADINE 10 MG TABLET PO (08:53)
[2022-02-09] MEDS: FERROUS SULFATE 324 MG TABLET PO ×2 (08:53→16:13)
[2022-02-09] MEDS: POTASSIUM CHLORIDE 10 MEQ TABLET.ER PO (08:53)
[2022-02-09] MEDS: hydrALAZINE HCL 25 MG TABLET PO ×3 (08:54→16:13)
[2022-02-09] MEDS: calcium polycarbophiL 625 MG TABLET PO ×2 (08:54→16:13)
[2022-02-09] MEDS: CHLORTHALIDONE 25 MG TABLET PO (08:54)
[2022-02-09] MEDS: CLOPIDOGREL BISULFATE 75 MG TABLET PO (08:54)
[2022-02-09] MEDS: AMOXICILLIN/CLAVULANATE K 875-125 MG TAB 1 TABLET PO ×2 (08:54→20:48)
[2022-02-09] MEDS: INSULIN GLARGINE (*BKC) 100 UNITS/ML 48 UNITS SUB-Q (08:55)
[2022-02-09] MEDS: FLUTICASONE PROPIONATE 0.05% NA SPR 16 GM BTL (*BKC) 1 SPRAY NASAL ×2 (08:55→20:48)
[2022-02-09] MEDS: ASPIRIN 81 MG CHEWABLE TABLET PO (08:55)
[2022-02-09] MEDS: LOSARTAN POTASSIUM 50 MG TABLET PO ×2 (08:55→16:12)
[2022-02-09] MEDS: ACETAMINOPHEN 325 MG TABLET 650 MG PO (10:38)
[2022-02-09] MEDS: polyethylene glycoL 3350 17 GM POWD.PACK PO (10:43)
[2022-02-09 11:19] LABS: Glucose Point of Care 174 mg/dl (65-105)
[2022-02-09] MEDS: SENNA/DOCUSATE SODIUM TABLET 1 TAB PO (11:57)
--- NOTE | 2022-02-09 13:46 | PCOTNOTE ---
Attempted to see patient this pm, however patient was sleeping upon entering and refused stating, I've had a lot going on.
[2022-02-09 16:19] LABS: Glucose Point of Care 162 mg/dl (65-105)
[2022-02-09 20:42] LABS: Glucose Point of Care 190 mg/dl (65-105)
[2022-02-09] MEDS: INSULIN GLARGINE (*BKC) 100 UNITS/ML 25 UNITS SUB-Q (20:47)
[2022-02-10] VITALS (17 sets, daily range): BP systolic 128–165; BP diastolic 62–90; PULSE 63–84; RESP 16–22; TEMP 36.4–36.8; O2SAT 94–98
--- NOTE | 2022-02-10 07:40 | PM.IMPN ---
Progress Note: A&P Additional Plan (1) Vertigo: Code(s): R42 - Dizziness and giddiness Status: Acute Assessment and Plan: -negative orthostatic vitals. -continue meclizine for possible labyrinthitis related to his chronic sinus issues. -given the CT head showing right mastoid effusion, he is empirically on antibiotics for upper respiratory /sinus infection -Compazine p.r.n. 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 Goal LDL less than 70 will up-titrate atorvastatin to 80 mg -Neurology is following -continue to monitor for elevated intracranial pressure due to cerebellar stroke -He did mention he sees tool and die designer for some rhythm problems. However unclear what kind a rhythm problem he had He is on telemetry monitoring and has been sinus rhythm. Will continue to monitor. He did have previous right occipital lobe stroke and left cerebellar hemisphere stroke in the past as noted in the MRI brain. 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 This will be assessed and started as an outpatient basis. With risk of fall due to his ongoing vertigo/dizziness his is not be a candidate for anticoagulation at this time and will be assessed as an outpatient basis. -PT/OT. (2) Nausea & vomiting: improved Qualifiers: Vomiting type: unspecified Qualified Code(s): R11.2 - Nausea with vomiting, unspecified Code(s): R11.2 - Nausea with vomiting, unspecified Status: Acute Assessment and Plan: -likely related to posterior circulation stroke. -continue IV Zofran PRN. (3) General weakness: Code(s): R53.1 - Weakness Status: Acute Assessment and Plan: Related to new and previous strokes. No focal findings on exam. On fall precautions. Continue PT OT (4) Renal mass: Code(s): N28.89 - Other specified disorders of kidney and ureter Status: Acute Assessment and Plan: CT shows a 7 mm exophytic enhancing mass in the right kidney upper pole suspicious for renal cell carcinoma. Follow-up with Urology as an outpatient. (5) Insulin dependent type 2 diabetes mellitus: Code(s): E11.9 - Type 2 diabetes mellitus without complications; Z79.4 - [facility] (current) use of insulin Status: Acute Assessment and Plan: Continue basal insulin and sliding scale insulin, Accu-Cheks, and hypoglycemic protocol. A1c at 9.7 (6) Hypertension: Code(s): I10 - Essential (primary) hypertension Status: Acute Assessment and Plan: Continue home medication and monitor closely. Adjustments will be made accordingly depending on his trends. On chlorthalidone and losartan On amlodipine 5 mg BID and hydralazine 25 mg TID. (7) Obstructive sleep apnea on CPAP: Code(s): G47.33 - Obstructive sleep apnea (adult) (pediatric); Z99.89 - Dependence on other enabling machines and devices Status: Acute Assessment and Plan: CPAP provided for the patient to use while hospitalized. (8) Gastroesophageal reflux disease: Code(s): K21.9 - Gastro-esophageal reflux disease without esophagitis Status: Acute Assessment and Plan: Patient denies that his symptoms now are similar to those he experiences with GERD. CT showed no acute findings. (9) Abdominal pain: Code(s): R10.9 - Unspecified abdominal pain Status: Acute Assessment and Plan: Patient has mild tenderness to palpation throughout the abdomen without focal findings. CT showed no acute findings to corroborate with reports of abdominal discomfort. May be related to his IBS and GERD. Monitor. Could be from multiple episodes of nausea an
[2022-02-10 07:50] LABS: Glucose Point of Care 172 mg/dl (65-105)
[2022-02-10] MEDS: FLUTICASONE PROPIONATE 0.05% NA SPR 16 GM BTL (*BKC) 1 SPRAY NASAL ×2 (08:46→21:27)
[2022-02-10] MEDS: ASPIRIN 81 MG CHEWABLE TABLET PO (08:46)
[2022-02-10] MEDS: POTASSIUM CHLORIDE 10 MEQ TABLET.ER PO (08:46)
[2022-02-10] MEDS: polyethylene glycoL 3350 17 GM POWD.PACK PO (08:46)
[2022-02-10] MEDS: LOSARTAN POTASSIUM 50 MG TABLET PO ×2 (08:47→16:33)
[2022-02-10] MEDS: GLIMEPIRIDE 2 MG TABLET 4 MG PO (08:47)
[2022-02-10] MEDS: FERROUS SULFATE 324 MG TABLET PO ×2 (08:47→16:33)
[2022-02-10] MEDS: hydrALAZINE HCL 25 MG TABLET PO ×3 (08:47→16:33)
[2022-02-10] MEDS: amLODIPine BESYLATE 5 MG TABLET PO ×2 (08:47→16:33)
[2022-02-10] MEDS: CHLORTHALIDONE 25 MG TABLET PO (08:47)
[2022-02-10] MEDS: PANTOPRAZOLE 40 MG TABLET PO (08:47)
[2022-02-10] MEDS: ATORVASTATIN 40 MG TABLET 80 MG PO (08:48)
[2022-02-10] MEDS: MECLIZINE HCL 25 MG TABLET PO ×3 (08:48→16:32)
[2022-02-10] MEDS: AMOXICILLIN/CLAVULANATE K 875-125 MG TAB 1 TABLET PO ×2 (08:48→21:27)
[2022-02-10] MEDS: METOPROLOL SUCCINATE EXT REL 50 MG TABCR 150 MG PO (08:48)
[2022-02-10] MEDS: CLOPIDOGREL BISULFATE 75 MG TABLET PO (08:49)
[2022-02-10] MEDS: calcium polycarbophiL 625 MG TABLET PO ×2 (08:50→16:32)
[2022-02-10] MEDS: LORATADINE 10 MG TABLET PO (08:51)
[2022-02-10] MEDS: INSULIN GLARGINE (*BKC) 100 UNITS/ML 48 UNITS SUB-Q (09:32)
[2022-02-10] MEDS: ACETAMINOPHEN 325 MG TABLET 650 MG PO (10:41)
--- NOTE | 2022-02-10 10:43 | PCPTNOTE ---
Attempted to see patient for PT at this time, patient declined due to just working with OT and getting back in bed.
[2022-02-10 11:17] LABS: Glucose Point of Care 184 mg/dl (65-105)
--- NOTE | 2022-02-10 12:25 | WPDNEUROPN ---
Subjective Date/time seen: 02/10/22 12:25 76 years old right-handed male admitted to the hospital with the complaint of positional vertigo in addition to orthostatic but also possibility of posterior circulation dysfunction evaluation documented the point right occipital infarct but unremarkable CTA MRI of the brain documented couple small acute infarcts in the right cerebellar hemisphere and also small old infarct in the right occipital lobe and small old infarct and left cerebellar hemisphere all the abnormalities raising the possibility of posterior circulations TIA and stroke in that distribution because his CTA is otherwise negative will have to obtain the echocardiogram with Cardiology consultation Review of Systems Review of Systems: All systems reviewed & are unremarkable except as noted in HPI and below Objective Data Vital Signs Vital Signs: Vital Signs - 24 hr 02/09/22 14:15 02/09/22 16:00 02/09/22 16:30 Temperature 36.9 C 37.1 C 37.1 C Pulse Rate 64 70 68 Respiratory Rate 16 16 18 Blood Pressure 131/64 142/77 H 148/65 H Pulse Oximetry 95 97 97 02/09/22 20:00 02/09/22 21:21 02/09/22 21:28 Temperature 36.4 C Pulse Rate 72 66 75 Respiratory Rate 14 17 Blood Pressure 160/77 H Pulse Oximetry 94 97 94 02/09/22 21:31 02/10/22 00:00 02/10/22 01:59 Temperature Pulse Rate 72 77 Respiratory Rate 22 H Blood Pressure 154/83 H Pulse Oximetry 95 02/10/22 04:00 02/10/22 05:35 02/10/22 08:48 Temperature 36.4 C Pulse Rate 63 63 80 Respiratory Rate 16 Blood Pressure 145/74 H Pulse Oximetry 98 95 02/10/22 09:50 02/10/22 09:52 02/10/22 09:59 Temperature Pulse Rate 67 63 84 Respiratory Rate Blood Pressure 156/83 H 153/82 H 148/90 H Pulse Oximetry Intake/Output Intake/Output: Intake & Output 02/07/22 02/08/22 02/09/22 02/10/22 23:59 23:59 23:59 23:59 Intake Total 3510 1989 1460 760 Output Total 2750 1860 1250 300 Balance 760 130 210 460 Meds/Results Medications: Active Medications Generic Name Dose Route Start Last Admin Trade Name Freq PRN Reason Stop Dose Admin Acetaminophen 650 mg 02/05/22 14:53 02/09/22 10:38 Acetaminophen 325 Mg Tablet PO 650 mg Q6H PRN Administration Mild Pain (1-3) or Fever Acetaminophen 650 mg 02/09/22 10:16 02/10/22 10:41 Acetaminophen 325 Mg Tablet PO 650 mg Q4H PRN Administration Headache Amlodipine Besylate 5 mg 02/06/22 17:00 02/10/22 08:47 Amlodipine Besylate 5 Mg Tablet PO 5 mg BID MUKUL Administration Amoxicillin/Clavulanate Potassium 1 tablet 02/05/22 21:00 02/10/22 08:48 Amoxicillin/Clavulanate K 875-125 Mg Tab PO 1 tablet Q12HR MUKUL Administration Aspirin 81 mg 02/05/22 09:00 02/10/22 08:46 Aspirin 81 Mg Chewable Tablet PO 81 mg DAILY MUKUL Administration Atorvastatin Calcium 80 mg 02/09/22 09:00 02/10/22 08:48 Atorvastatin 40 Mg Tablet PO 80 mg DAILY MUKUL Administration Calcium Polycarbophil 625 mg 02/05/22 09:00 02/10/22 08:50 Calcium Polycarbophil 625 Mg Tablet PO 625 mg BID MUKUL Administration Chlorthalidone 25 mg 02/05/22 09:00 02/10/22 08:47 Chlorthalidone 25 Mg Tablet PO 25 mg DAILY MUKUL Administration Clopidogrel Bisulfate 75 mg 02/05/22 15:33 02/10/22 08:49 Clopidogrel Bisulfate 75 Mg Tablet PO 75 mg QAM MUKUL Administration Dextrose 12.5 gm 02/04/22 19:41 Dextrose 50% 25 Gm/50 Ml Syringe IV PUSH PRN PRN Hypoglycemia Protocol Ferrous Sulfate 324 mg 02/05/22 09:00 02/10/22 08:47 Ferrous Sulfate 324 Mg Tablet PO 324 mg BID MUKUL Administration Fluticasone Propionate 1 spray 02/05/22 21:00 02/10/22 08:46 Fluticasone Propionate 0.05% Na Spr 16 Gm Btl (*Bkc) NASAL 1 spray Q12HR MUKUL Administration Glimepiride 4 mg 02/05/22 09:00 02/10/22 08:47 Glimepiride 2 Mg Tablet PO 4 mg DAILY MUKUL Administration Glucagon 1 mg 02/04/22 19:41 Glucagon For Inj 1 Mg Vial
--- NOTE | 2022-02-10 15:44 | PCOTNOTE ---
Decreasing pt. frequency of treatment to 2-3x/wk as pt. does not appear to be benefiting from greater frequency
[2022-02-10 16:26] LABS: Glucose Point of Care 180 mg/dl (65-105)
--- NOTE | 2022-02-10 17:29 | PM.CNCAR ---
Assessment and Plan Assessment and plan (1) History of multiple strokes: Code(s): Z86.73 - Personal history of transient ischemic attack (TIA), and cerebral infarction without residual deficits Status: Acute Assessment and Plan: Patient admitted with 2 new cerebellar strokes, has evidence of multiple strokes in both hemispheres, of unclear etiology. No carotid disease to account for this no known atrial fibrillation nothing to suggest endocarditis May be related to hypertensive vascular disease recommended DANIEL with bubble study to evaluate for cardiac source of emboli and to evaluate the aorta for any thrombus recommend patient follow-up with his usual line maintainer, Dr. Jamil, for long-term monitoring to evaluate for any paroxysmal atrial fibrillation (2) Cerebellar stroke: Code(s): I63.9 - Cerebral infarction, unspecified Status: Acute Assessment and Plan: Admitted with nausea vomiting and vertigo due to acute cerebellar strokes already taking aspirin Plavix and atorvastatin added (3) PVCs (premature ventricular contractions): Code(s): I49.3 - Ventricular premature depolarization Status: Acute Assessment and Plan: PVCs and bigeminy noted on telemetry, asymptomatic. Hypokalemic with a potassium of 3.2, will supplement Continue usual home metoprolol 150 mg daily (4) Hypertension: Code(s): I10 - Essential (primary) hypertension Status: Acute Assessment and Plan: systolic blood pressure running 140-160, not at goal. Would not change medications at this point, but in the long run it would be better to reduce the blood pressure further History of Present Illness History of Present Illness Consult date/time: 02/10/22 17:29 Requesting physician: Mynor Baez MD Consult reason: Other (Multiple strokes) Reason For Visit: Generalized weakness/nausea vomiting/renal mass Narrative: Dasha Rodriguez Is a 76-year-old male whom we were asked to see at the request of Dr. Baez for our advice and opinion regarding his multiple strokes. History of hypertension (pt reports SBP in 150's), AVILA on CPAP, GERD, old stroke 2000, diabetes and frequent PVCs.. The patient was admitted 02/04/2022 with nausea vomiting and not feeling well. He was having some vertigo. He was found have some acute strokes in the cerebellum as well as multiple old and bilateral strokes. No carotid disease. He is still having vertigo and nausea. The patient sees Dr. Jamil in [place] for frequent PVCs and also was evaluated by Dr. Adamson, job training specialist at [place]. The PVCs originate in the left ventricular somewhat which is inaccessible to ablation and medical therapy was recommended. With metoprolol, fish oil and magnesium supplementation his PVC burden reduced from 30% to 1%. No history of any heart attacks or heart failure, no known atrial fibrillation, no palpitations, has never been advised to take an anticoagulant. Review of Systems Constitutional: Constitutional: Reports fatigue and Reports weakness Eyes: Eyes: Reports no additional eye complaints ENT: Denies epistaxis Cardiovascular: Cardiovascular: Denies chest pain, Denies leg edema, Reports lightheadedness and Denies palpitations Respiratory: Respiratory: Denies dyspnea and Denies dyspnea on exertion Gastrointestinal: Gastrointestinal: Denies abdominal pain and Reports nausea Genitourinary: Genitourinary: Denies hematuria Musculoskeletal: Musculoskeletal: Reports no additional musculoskeletal complaints Integumentary/Breasts: Skin/Breast: Denies rash Neurologic: Denies confusion and Reports vertigo Psychiatric: Psychiatric: Denies behavioral changes [facility] Past Medical History Medical History (Updated 02/10/22 @ 18:02 by Rehana Hess MD) Cerebrovascular accident (10/2000) Gastric ulcer Gastroesophageal reflux disease Hypertension Insulin dependent type 2 diabetes mellitus
[2022-02-10 20:42] LABS: Glucose Point of Care 240 mg/dl (65-105)
[2022-02-10] MEDS: INSULIN GLARGINE (*BKC) 100 UNITS/ML 25 UNITS SUB-Q (21:28)
[2022-02-11] VITALS (26 sets, daily range): BP systolic 99–164; BP diastolic 53–95; PULSE 66–75; RESP 12–16; TEMP 36.4–36.8; O2SAT 93–99
--- NOTE | 2022-02-11 | ECHO_ITS ---
Patient Info Name: Dasha Pedersen Age: 76 years : 1945 Gender: Male Ht: 66 in Wt: 239 lbs BSA: 2.30 m2 HR: 81 bpm Heart Rhythm: Sinus Rhythm Exam Date: 02/11/2022 10:52 AM Exam Location: [facility] Pulmonary Patient Status: Inpatient Admit Date: 02/07/2022 Staff Ordering Physician: Calvin Santos MD Casting Finisher: John Santos, JANIE, RT Attending Provider: Calvin Santos MD Exam Type: CA echo transesophageal Study Info Indications G45.8 - Other transient cerebral ischemic attacks and related syndromes Complete two-dimensional, color flow and Doppler transesophageal study is performed. Summary 1. Left ventricular chamber dimension is normal. 2. Well-preserved contractility with ejection fraction of 60-65%. 3. Mild mitral regurgitation and trivial aortic regurgitation. 4. Somewhat redundant atrial septum but no evidence of shunt by color Doppler or saline contrast injection. 5. Spontaneous left atrial contrast or smoke . Left Ventricle Left ventricular chamber dimension is normal. Well-preserved contractility with ejection fraction of 60-65%. Right Ventricle Right ventricular chamber dimension is normal. Left Atria Left atrial chamber dimension is severely enlarged. Right Atria Right atrial chamber dimension is normal. Aortic Valve The aortic valve is trileaflet. There is trace aortic valve regurgitation. Pulmonic Valve The pulmonic valve is normal. Mitral Valve The mitral valve has normal leaflets. There is mild mitral valve regurgitation. Tricuspid Valve The tricuspid valve leaflets are normal. Pericardium/Pleural The pericardium appears normal. Inferior Vena Cava Normal inferior vena cava with Empty collapse upon inspiration consistent with Empty right atrial pressure, Empty. Aorta The aortic root size at the sinus of Valsalva is normal. Report Signatures
[2022-02-11 06:10] LABS: Potassium 3.3 mmol/L (3.4-5.0)
[2022-02-11 07:37] LABS: Glucose Point of Care 141 mg/dl (65-105)
[2022-02-11] MEDS: FLUTICASONE PROPIONATE 0.05% NA SPR 16 GM BTL (*BKC) 1 SPRAY NASAL ×2 (08:09→20:37)
[2022-02-11] MEDS: amLODIPine BESYLATE 5 MG TABLET PO ×2 (08:59→16:33)
[2022-02-11] MEDS: METOPROLOL SUCCINATE EXT REL 50 MG TABCR 150 MG PO (08:59)
[2022-02-11] MEDS: hydrALAZINE HCL 25 MG TABLET PO ×3 (08:59→16:34)
[2022-02-11] MEDS: CHLORTHALIDONE 25 MG TABLET PO (09:00)
[2022-02-11] MEDS: MECLIZINE HCL 25 MG TABLET PO ×3 (09:00→16:33)
--- NOTE | 2022-02-11 10:03 | WPDMODSED ---
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 distributions History of PVCs Present Complaint: No complaints this morning Procedure to be performed/Plan: Transesophageal echocardiogram Allergies Allergy/AdvReac Type Severity Reaction Status Date / Time No Known Allergies Allergy Verified 02/04/22 14:45 Home Medications Medication Instructions Recorded Confirmed Type amlodipine 2.5 mg PO DAILY 02/04/22 02/04/22 History aspirin [Baby Aspirin] 81 mg PO DAILY 02/04/22 02/04/22 History atorvastatin 40 mg PO DAILY 02/04/22 02/04/22 History calcium polycarbophil [FiberCon] 625 mg PO BID 02/04/22 02/04/22 History cetirizine [Zyrtec] 10 mg PO DAILY 02/04/22 02/04/22 History chlorthalidone 25 mg PO DAILY 02/04/22 02/04/22 History esomeprazole magnesium 40 mg PO DAILY 02/04/22 02/04/22 History ferrous sulfate 325 mg PO BID 02/04/22 02/04/22 History glimepiride 4 mg PO DAILY 02/04/22 02/04/22 History insulin degludec [Tresiba 25 unit SUBCUT HS 02/04/22 02/04/22 History FlexTouch U-200] insulin degludec [Tresiba 48 unit SUBCUT DAILY 02/04/22 02/04/22 History FlexTouch U-200] losartan 50 mg PO BID 02/04/22 02/04/22 History metoprolol succinate 150 mg PO DAILY 02/04/22 02/04/22 History potassium chloride 10 meq PO DAILY 02/04/22 02/04/22 History semaglutide [Ozempic] 1 mg SUBCUT WEEKLY 02/04/22 02/04/22 History Current Medications: Active Medications Acetaminophen (Acetaminophen 325 Mg Tablet) 650 mg PO Q6H PRN PRN Reason: Mild Pain (1-3) or Fever Last Admin: 02/09/22 10:38 Dose: 650 mg Documented by: Acetaminophen (Acetaminophen 325 Mg Tablet) 650 mg PO Q4H PRN PRN Reason: Headache Last Admin: 02/10/22 10:41 Dose: 650 mg Documented by: Amlodipine Besylate (Amlodipine Besylate 5 Mg Tablet) 5 mg PO BID MUKUL Last Admin: 02/11/22 08:59 Dose: 5 mg Documented by: Amoxicillin/Clavulanate Potassium (Amoxicillin/Clavulanate K 875-125 Mg Tab) 1 tablet PO Q12HR [facility] Last Admin: 02/10/22 21:27 Dose: 1 tablet Documented by: Aspirin (Aspirin 81 Mg Chewable Tablet) 81 mg PO DAILY [facility] Last Admin: 02/10/22 08:46 Dose: 81 mg Documented by: Atorvastatin Calcium (Atorvastatin 40 Mg Tablet) 80 mg PO DAILY [facility] Last Admin: 02/10/22 08:48 Dose: 80 mg Documented by: Calcium Polycarbophil (Calcium Polycarbophil 625 Mg Tablet) 625 mg PO BID [facility] Last Admin: 02/10/22 16:32 Dose: 625 mg Documented by: Chlorthalidone (Chlorthalidone 25 Mg Tablet) 25 mg PO DAILY [facility] Last Admin: 02/11/22 09:00 Dose: 25 mg Documented by: Clopidogrel Bisulfate (Clopidogrel Bisulfate 75 Mg Tablet) 75 mg PO QAM [facility] Last Admin: 02/10/22 08:49 Dose: 75 mg Documented by: Dextrose (Dextrose 50% 25 Gm/50 Ml Syringe) 12.5 gm IV PUSH PRN PRN; Protocol PRN Reason: Hypoglycemia Ferrous Sulfate (Ferrous Sulfate 324 Mg Tablet) 324 mg PO BID [facility] Last Admin: 02/10/22 16:33 Dose: 324 mg Documented by: Fluticasone Propionate (Fluticasone Propionate 0.05% Na Spr 16 Gm Btl (*Bkc)) 1 spray NASAL Q12HR [facility] Last Admin: 02/11/22 08:09 Dose: 1 spray Documented by: Glimepiride (Glimepiride 2 Mg Tablet) 4 mg PO DAILY [facility] Last Admin: 02/10/22 08:47 Dose: 4 mg Documented by: Glucagon (Glucagon For Inj 1 Mg Vial) 1 mg IM PRN PRN; Protocol PRN Reason: Hypoglycemia Glucose (Glucose Oral Gel 15 Gm Of Glucse In 37.5 Gm Tube) 15 gm PO PRN PRN; Protocol PRN Reason: Hypoglycemia Hydralazine HCl (Hydralazine Hcl 25 Mg Tablet) 25 mg PO TIDWM [facility] Last Admin: 02/11/22 08:59 Dose: 25 mg Documented by: Dextrose (Dextrose 5% 1,000 Ml) 1,000 mls @ 100 mls/hr IVPB PRN PRN; Protocol PRN Reason: Hypoglycemia Insulin Aspart (Insulin Aspart (*Bkc) 100 Units/Ml) 2 - 5 units SUB-Q TIDWM [facility]; Protocol Last Admin: 02/11/22 07:40 Dose: Not Given Documented by: Insulin Glargine (Insulin Glargine (*Bkc) 100 Units/Ml) 25 units SUB-Q HS [facility] Last Admin: 02/10/22 21:28 Dose: 25 units Documented by: Insulin Glargine (Insulin Glar
--- NOTE | 2022-02-11 11:09 | PM.IMPN ---
Progress Note: A&P Additional Plan (1) Vertigo: Code(s): R42 - Dizziness and giddiness Status: Acute Assessment and Plan: -negative orthostatic vitals. -continue meclizine for possible labyrinthitis related to his chronic sinus issues. -given the CT head showing right mastoid effusion, he is empirically on antibiotics for upper respiratory /sinus infection -Compazine p.r.n. 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 Goal LDL less than 70 will up-titrate atorvastatin to 80 mg -Neurology is following -continue to monitor for elevated intracranial pressure due to cerebellar stroke -He did mention he sees payroll and benefits specialist for some rhythm problems. However unclear what kind a rhythm problem he had He is on telemetry monitoring and has been sinus rhythm. Will continue to monitor. He did have previous right occipital lobe stroke and left cerebellar hemisphere stroke in the past as noted in the MRI brain. 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 This will be assessed and started as an outpatient basis. With risk of fall due to his ongoing vertigo/dizziness his is not be a candidate for anticoagulation at this time and will be assessed as an outpatient basis. -payroll and benefits specialist plans for DANIEL today with bubble study to evaluate for the source of embolic stroke. -PT/OT. (2) Nausea & vomiting: improved Qualifiers: Vomiting type: unspecified Qualified Code(s): R11.2 - Nausea with vomiting, unspecified Code(s): R11.2 - Nausea with vomiting, unspecified Status: Acute Assessment and Plan: -likely related to posterior circulation stroke. -continue IV Zofran PRN. (3) General weakness: Code(s): R53.1 - Weakness Status: Acute Assessment and Plan: Related to new and previous strokes. No focal findings on exam. On fall precautions. Continue PT OT (4) Renal mass: Code(s): N28.89 - Other specified disorders of kidney and ureter Status: Acute Assessment and Plan: CT shows a 7 mm exophytic enhancing mass in the right kidney upper pole suspicious for renal cell carcinoma. Follow-up with Urology as an outpatient. (5) Insulin dependent type 2 diabetes mellitus: Code(s): E11.9 - Type 2 diabetes mellitus without complications; Z79.4 - long-term (current) use of insulin Status: Acute Assessment and Plan: Continue basal insulin and sliding scale insulin, Accu-Cheks, and hypoglycemic protocol. A1c at 9.7 (6) Hypertension: Code(s): I10 - Essential (primary) hypertension Status: Acute Assessment and Plan: Continue home medication and monitor closely. Adjustments will be made accordingly depending on his trends. On chlorthalidone and losartan On amlodipine 5 mg BID and hydralazine 25 mg TID. (7) Obstructive sleep apnea on CPAP: Code(s): G47.33 - Obstructive sleep apnea (adult) (pediatric); Z99.89 - Dependence on other enabling machines and devices Status: Acute Assessment and Plan: CPAP provided for the patient to use while hospitalized. (8) Gastroesophageal reflux disease: Code(s): K21.9 - Gastro-esophageal reflux disease without esophagitis Status: Acute Assessment and Plan: Patient denies that his symptoms now are similar to those he experiences with GERD. CT showed no acute findings. (9) Abdominal pain: Code(s): R10.9 - Unspecified abdominal pain Status: Acute Assessment and Plan: Patient has mild tenderness to palpation throughout the abdomen without focal findings. CT showed no acute findings to corroborate with reports of abdominal disc
--- NOTE | 2022-02-11 11:11 | PM.PNCARD ---
Progress Note: A&P Additional Plan 76-year-old man with: Evidence of strokes and a multi vascular distribution suggesting possible cardioembolic source. Transesophageal echocardiogram done a short time ago demonstrates normal left and right ventricular systolic function. There is a trivial jet of aortic regurgitation and a mild jet of mitral regurgitation. These findings were seen on the transthoracic echo am as well. The interatrial septum is intact and with agitated saline contrast injection x2 there is no evidence of intracardiac shunting at this level. I was impressed that the left atrium is severely dilated and despite the fact that he is electrically in sinus rhythm there is very little left atrial systolic contractility and significant amount of spontaneous contrast or smoke in the left atrium. The appendage was inspected carefully there is no visible thrombus. Because of the very dilated left atrium an impressive amount of spontaneous contrast I would probably favor anticoagulating this gentleman with a NOAC in place of clopidogrel treatment. I am going to shift him from clopidogrel to Xarelto. Further follow-up and decisions to continue this are not will be deferred to his established area operations director to is not available here at [facility] Bubba Carver MD [facility] Subjective Date/time seen: Date of service: 02/11/22 11:11 Interval history: Follow-up visit in this 76-year-old man with: CVAs and a multi vascular distribution raising concern regarding potential cardioembolic source. Patient has a history of follow-up with Cardiology and electrophysiology because of frequent PVCs. Exam Const: General: comfortable and no acute distress Other: Well-developed elderly gentleman appearing his stated age answers questions appropriately but mentation is slow HENMT: Mouth: Yes moist mucous membranes Eyes: Sclera: sclerae normal Pupils: Equal, round and reactive pupils present Neck: Neck: supple and no JVD Other: No carotid bruits Resp: Effort & Inspection: normal respiratory effort Auscultation: clear to auscultation bilaterally Cardio: Rate: regular rate Rhythm: regular rhythm GI: GI Palp: Yes Soft to palpation Auscultation: normal bowel sounds Skin: General skin exam: normal color Neuro: Cognition (Neuro): normal cognition Other: Cognition is intact but answers questions slowly Extrem: General: normal to inspection Objective Data Vital Signs Vital Signs: Vital Signs - 24 hr 02/10/22 12:00 02/10/22 14:38 02/10/22 16:00 Temperature Pulse Rate 73 69 71 Respiratory Rate 16 Blood Pressure 128/68 Pulse Oximetry 98 02/10/22 19:41 02/10/22 19:42 02/10/22 19:46 Temperature 36.8 C Pulse Rate 64 Respiratory Rate 16 Blood Pressure 165/74 H 140/62 148/78 H Pulse Oximetry 95 02/10/22 20:00 02/10/22 22:10 02/11/22 00:00 Temperature Pulse Rate 78 72 71 Respiratory Rate 19 Blood Pressure Pulse Oximetry 94 02/11/22 04:00 02/11/22 05:01 02/11/22 08:59 Temperature 36.5 C Pulse Rate 72 67 73 Respiratory Rate 14 Blood Pressure 123/82 Pulse Oximetry 96 02/11/22 09:00 02/11/22 09:18 02/11/22 10:40 Temperature 36.5 C Pulse Rate 66 75 Respiratory Rate 16 14 Blood Pressure 164/77 H 125/95 H 154/69 H Pulse Oximetry 99 97 02/11/22 10:45 02/11/22 10:50 02/11/22 11:01 Temperature Pulse Rate 71 69 68 Respiratory Rate 12 14 Blood Pressure 99/53 L 107/56 L 110/64 Pulse Oximetry 97 97 96 Intake/Output Intake/Output: Intake & Output 02/08/22 02/09/22 02/10/22 02/11/22 23:59 23:59 23:59 23:59 Intake Total 1989 1460 1030 300 Output Total 0 1250 875 600 Balance 130 210 155 -300 Meds/Results Medications: Active Medications Generic Name Dose Route Start Last Admin Trade Name Freq PRN Reason Stop Dose Admin Acetaminophen 650 mg 02/05/22 14:53 02/09/22 10:38 Acetaminophen 325 Mg Tablet PO 650 mg Q6H PRN Administration Mi
[2022-02-11 11:36] LABS: Basophils Absolute Auto 0.1 K/mm3 (0.0-0.1); Basophils Percent Auto 0.8 % (0.2-1.2); Eosinophils Absolute Auto 0.2 K/mm3 (0-0.3); Eosinophils Percent Auto 2.2 % (0-4.4); Hematocrit 46.7 % (42.0-52.0); Hemoglobin 15.2 g/dL (14.0-18.0); Immature Granulocyte Absolute 0.02 K/mm3 (0.00-0.031); Immature Granulocyte Percent A 0.2 % (0-0.5); Lymphocytes Absolute Auto 1.87 K/mm3 (0.9-3.2); Lymphocytes Percent Auto 17.2 % (18.3-44.2); Mean Corpuscular HGB Conc 32.5 g/dl (32-36); Mean Corpuscular Hemoglobin 27.5 pg (26-34); Mean Corpuscular Volume 84.4 fl (80-100); Mean Platelet Volume 10.9 fl (7.4-10.4); Monocytes Absolute Auto 1.3 K/mm3 (0.1-0.6); Monocytes Percent Auto 11.9 % (2.6-8.5); Neutrophils Absolute Auto 7.4 K/mm3 (1.3-6.7); Neutrophils Percent Auto 67.7 % (45.5-73.1); Platelet Count Result 286 k/mm3 (150-375); Red Blood Count 5.53 M/mm3 (4.6-6.20); Red Cell Distribution Width 13.8 % (11.5-14.5); White Blood Count 10.9 K/mm3 (4.5-10.0)
--- NOTE | 2022-02-11 12:05 | PC.NURSE ---
Patient returned from [facility] per bed at 1205 02/11/22.
[2022-02-11] MEDS: GLIMEPIRIDE 2 MG TABLET 4 MG PO (12:12)
[2022-02-11] MEDS: PANTOPRAZOLE 40 MG TABLET PO (12:13)
[2022-02-11] MEDS: SENNA/DOCUSATE SODIUM TABLET 1 TAB PO (12:13)
[2022-02-11] MEDS: FERROUS SULFATE 324 MG TABLET PO ×2 (12:13→16:34)
[2022-02-11] MEDS: ATORVASTATIN 40 MG TABLET 80 MG PO (12:14)
[2022-02-11] MEDS: calcium polycarbophiL 625 MG TABLET PO ×2 (12:14→16:34)
[2022-02-11] MEDS: LOSARTAN POTASSIUM 50 MG TABLET PO ×2 (12:14→17:27)
[2022-02-11] MEDS: ASPIRIN 81 MG CHEWABLE TABLET PO (12:14)
[2022-02-11] MEDS: LORATADINE 10 MG TABLET PO (12:14)
[2022-02-11] MEDS: polyethylene glycoL 3350 17 GM POWD.PACK PO (12:15)
[2022-02-11] MEDS: POTASSIUM CHLORIDE 20 MEQ TABLET PO ×3 (12:15→16:33)
[2022-02-11 12:18] LABS: Glucose Point of Care 126 mg/dl (65-105)
[2022-02-11] MEDS: fentaNYL CITRATE INJ (*CRX) 100 MCG/2 ML VIAL (15:29)
[2022-02-11] MEDS: MIDAZOLAM HCL (*CRX) 2 MG/2 ML VIAL 4 MG (15:29)
[2022-02-11 16:24] LABS: Glucose Point of Care 102 mg/dl (65-105)
[2022-02-11] MEDS: RIVAROXABAN 20 MG TABLET PO (16:35)
[2022-02-11] MEDS: INSULIN GLARGINE (*BKC) 100 UNITS/ML 10 UNITS SUB-Q (20:57)
[2022-02-11 21:08] LABS: Glucose Point of Care 147 mg/dl (65-105)
[2022-02-12] VITALS (16 sets, daily range): BP systolic 129–156; BP diastolic 58–76; PULSE 63–75; RESP 14–17; TEMP 36.2–36.4; O2SAT 94–98
[2022-02-12 05:27] LABS: Magnesium 1.9 mg/dL (1.6-2.3)
[2022-02-12 05:28] LABS: Anion Gap 7 mmol/L (8-16); Blood Urea Nitrogen 27 mg/dL (9-20); Calcium 8.7 mg/dL (8.4-10.2); Carbon Dioxide 25 mmol/L (22-30); Chloride 101 mmol/L (98-107); Estimated CRCL calculation 54 ml/min; Estimated Glomerular Filt Rate 59; Glucose 131 mg/dL (65-110); Potassium 3.5 mmol/L (3.4-5.0); Sodium 133 mmol/L (137-145)
[2022-02-12 07:21] LABS: Glucose Point of Care 137 mg/dl (65-105)
[2022-02-12] MEDS: GLIMEPIRIDE 2 MG TABLET 4 MG PO (08:13)
[2022-02-12] MEDS: LOSARTAN POTASSIUM 50 MG TABLET PO ×2 (08:13→17:27)
[2022-02-12] MEDS: FLUTICASONE PROPIONATE 0.05% NA SPR 16 GM BTL (*BKC) 1 SPRAY NASAL ×2 (08:13→20:51)
[2022-02-12] MEDS: FERROUS SULFATE 324 MG TABLET PO ×2 (08:13→17:26)
[2022-02-12] MEDS: CHLORTHALIDONE 25 MG TABLET PO (08:13)
[2022-02-12] MEDS: ASPIRIN 81 MG CHEWABLE TABLET PO (08:13)
[2022-02-12] MEDS: POTASSIUM CHLORIDE 20 MEQ TABLET.ER 40 MEQ PO ×2 (08:14→17:26)
[2022-02-12] MEDS: PANTOPRAZOLE 40 MG TABLET PO (08:14)
[2022-02-12] MEDS: calcium polycarbophiL 625 MG TABLET PO ×2 (08:14→17:26)
[2022-02-12] MEDS: ATORVASTATIN 40 MG TABLET 80 MG PO (08:14)
[2022-02-12] MEDS: hydrALAZINE HCL 25 MG TABLET PO ×3 (08:14→17:27)
[2022-02-12] MEDS: amLODIPine BESYLATE 5 MG TABLET PO ×2 (08:15→17:27)
[2022-02-12] MEDS: MECLIZINE HCL 25 MG TABLET PO ×3 (08:16→17:25)
[2022-02-12] MEDS: polyethylene glycoL 3350 17 GM POWD.PACK PO (08:16)
[2022-02-12] MEDS: INSULIN GLARGINE (*BKC) 100 UNITS/ML 48 UNITS SUB-Q (08:18)
--- NOTE | 2022-02-12 08:37 | PC.NURSE ---
call to pharm for missing a.m meds
--- NOTE | 2022-02-12 09:34 | PM.IMPN ---
Progress Note: A&P Additional Plan (1) Vertigo: Code(s): R42 - Dizziness and giddiness Status: Acute Assessment and Plan: -negative orthostatic vitals. -continue meclizine for possible labyrinthitis related to his chronic sinus issues. -given the CT head showing right mastoid effusion, he is empirically on antibiotics for upper respiratory /sinus infection -Compazine p.r.n. 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 Goal LDL less than 70 will up-titrate atorvastatin to 80 mg -Neurology is following -continue to monitor for elevated intracranial pressure due to cerebellar stroke -He did mention he sees sprinkler installer for some rhythm problems. However unclear what kind a rhythm problem he had He is on telemetry monitoring and has been sinus rhythm. Will continue to monitor. He did have previous right occipital lobe stroke and left cerebellar hemisphere stroke in the past as noted in the MRI brain. 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 This will be assessed and started as an outpatient basis. With risk of fall due to his ongoing vertigo/dizziness his is not be a candidate for anticoagulation at this time and will be assessed as an outpatient basis. -sprinkler installer did a DANIEL with bubble study on 02/11/22 to evaluate for the source of embolic stroke. Please see their note for their TTE findings. Patient was switched from Plavix to Xarelto by the sprinkler installer. -PT/OT. (2) Nausea & vomiting: improved Qualifiers: Vomiting type: unspecified Qualified Code(s): R11.2 - Nausea with vomiting, unspecified Code(s): R11.2 - Nausea with vomiting, unspecified Status: Acute Assessment and Plan: -likely related to posterior circulation stroke. -continue IV Zofran PRN. (3) General weakness: Code(s): R53.1 - Weakness Status: Acute Assessment and Plan: Related to new and previous strokes. No focal findings on exam. On fall precautions. Continue PT OT (4) Renal mass: Code(s): N28.89 - Other specified disorders of kidney and ureter Status: Acute Assessment and Plan: CT shows a 7 mm exophytic enhancing mass in the right kidney upper pole suspicious for renal cell carcinoma. Follow-up with Urology as an outpatient. (5) Insulin dependent type 2 diabetes mellitus: Code(s): E11.9 - Type 2 diabetes mellitus without complications; Z79.4 - correction (current) use of insulin Status: Acute Assessment and Plan: Continue basal insulin and sliding scale insulin, Accu-Cheks, and hypoglycemic protocol. A1c at 9.7 (6) Hypertension: Code(s): I10 - Essential (primary) hypertension Status: Acute Assessment and Plan: Continue home medication and monitor closely. Adjustments will be made accordingly depending on his trends. On chlorthalidone and losartan On amlodipine 5 mg BID and hydralazine 25 mg TID. (7) Obstructive sleep apnea on CPAP: Code(s): G47.33 - Obstructive sleep apnea (adult) (pediatric); Z99.89 - Dependence on other enabling machines and devices Status: Acute Assessment and Plan: CPAP provided for the patient to use while hospitalized. (8) Gastroesophageal reflux disease: Code(s): K21.9 - Gastro-esophageal reflux disease without esophagitis Status: Acute Assessment and Plan: Patient denies that his symptoms now are similar to those he experiences with GERD. CT showed no acute findings. (9) Abdominal pain: Code(s): R10.9 - Unspecified abdominal pain Status: Acute Assessment and Plan: Patient has mild tenderness to palpation throughout the abd
[2022-02-12] MEDS: METOPROLOL SUCCINATE EXT REL 50 MG TABCR 150 MG PO (10:59)
[2022-02-12] MEDS: LORATADINE 10 MG TABLET PO (10:59)
[2022-02-12] MEDS: INSULIN ASPART (*BKC) 100 UNITS/ML SUB-Q (12:02)
[2022-02-12 12:34] LABS: Glucose Point of Care 248 mg/dl (65-105)
--- NOTE | 2022-02-12 12:54 | PM.PNCARD ---
Progress Note: A&P Assessment and Plan (1) History of multiple strokes: Code(s): Z86.73 - Personal history of transient ischemic attack (TIA), and cerebral infarction without residual deficits Status: Acute Assessment and Plan: Patient admitted with 2 new cerebellar strokes, has evidence of multiple strokes in both hemispheres, of unclear etiology. No carotid disease to account for this no known atrial fibrillation nothing to suggest endocarditis May be related to hypertensive vascular disease DANIEL showed severe the left atrial large minute with the large amount of spontaneous contrast of concern for a prothrombotic state. Plavix changed to Xarelto. Review DANIEL results with the patient and recommendations recommend patient follow-up with his usual phonograph needle tip maker, Dr. Jamil, for long-term monitoring to evaluate for any paroxysmal atrial fibrillation (2) PVCs (premature ventricular contractions): Code(s): I49.3 - Ventricular premature depolarization Status: Acute Assessment and Plan: Followed by Dr. Jamil, and seen by electrophysiology at [facility]. Continue metoprolol. Follow-up with Dr. Jamil on discharge Subjective Date/time seen: 02/12/22 12:54 Interval history: Follow-up for bilateral strokes, left atrial enlargement with spontaneous contrast in the left atrium. Also history of PVCs followed by Dr. Jamil 02/11/2022: Transesophageal echo showed a very large left atrium with poor contractility and a large amount of spontaneous contrast present with no actual thrombus. No shunt, no masses. Plavix changed to Xarelto. Date of service 02/12/2022: STill w/ vertigo and nausea. Up in chair for a little while today. Poor appetite. Planning on going to rehab. Telemetry shows no atrial fibrillation but occasional PVCs. Review of Systems Constitutional: Constitutional: Reports fatigue and Reports weakness Eyes: Eyes: Reports no additional eye complaints ENT: Denies epistaxis Cardiovascular: Cardiovascular: Denies chest pain and Denies palpitations Respiratory: Respiratory: Denies dyspnea Gastrointestinal: Gastrointestinal: Denies abdominal pain, Reports constipation and Reports nausea Genitourinary: Genitourinary: Denies hematuria Musculoskeletal: Musculoskeletal: Reports no additional musculoskeletal complaints Integumentary/Breasts: Skin/Breast: Denies rash Neurologic: Reports vertigo Psychiatric: Psychiatric: Reports no additional psychiatric complaints Exam Const: General: no acute distress and uncomfortable HENMT: General nose exam: no epistaxis Eyes: EOM: EOMs intact bilaterally Neck: Neck: supple Resp: Effort & Inspection: normal respiratory effort Auscultation: clear to auscultation bilaterally Cardio: Rate: regular rate Rhythm: regular rhythm Heart sounds: no murmurs GI: GI Palp: Yes Soft to palpation and Yes Tenderness to palpation present (GI) Other: mild right flank tenderness (pt thinsk 2nd contipation) Skin: Rashes: no rashes noted Neuro: Cognition (Neuro): normal cognition Speech: normal speech Extrem: General: no edema and no pedal edema Psych: Mental Status: mental status grossly normal Affect: normal affect Objective Data Vital Signs Vital Signs: Vital Signs - 24 hr 02/11/22 16:03 02/11/22 20:00 02/11/22 23:10 Temperature 97.6 F Pulse Rate 71 72 70 Respiratory Rate 14 Blood Pressure 119/69 Pulse Oximetry 98 02/11/22 23:11 02/11/22 23:17 02/11/22 23:18 Temperature Pulse Rate 74 Respiratory Rate 15 Blood Pressure 119/69 Pulse Oximetry 95 95 02/11/22 23:19 02/11/22 23:20 02/12/22 00:00 Temperature Pulse Rate 71 Respiratory Rate Blood Pressure 112/70 141/77 H Pulse Oximetry 02/12/22 02:57 02/12/22 04:00 02/12/22 05:02 Temperature 97.6 F Pulse Rate 75 67 67 Respiratory Rate 14 14 Blood Pressure 133/66 Pulse Oximetry 94 98 02/12/22 10:59 02/12/22
[2022-02-12] MEDS: ACETAMINOPHEN 325 MG TABLET 650 MG PO (13:10)
[2022-02-12 16:15] LABS: Glucose Point of Care 173 mg/dl (65-105)
[2022-02-12] MEDS: RIVAROXABAN 20 MG TABLET PO (17:26)
[2022-02-12] MEDS: INSULIN GLARGINE (*BKC) 100 UNITS/ML 25 UNITS SUB-Q (20:50)
[2022-02-12] MEDS: SENNA/DOCUSATE SODIUM TABLET 1 TAB PO (21:02)
[2022-02-12 21:11] LABS: Glucose Point of Care 213 mg/dl (65-105)
[2022-02-13] VITALS (17 sets, daily range): BP systolic 130–165; BP diastolic 65–101; PULSE 62–77; RESP 13–20; TEMP 36.1–37.2; O2SAT 94–99
[2022-02-13 05:36] LABS: Potassium 3.6 mmol/L (3.4-5.0)
[2022-02-13 07:35] LABS: Glucose Point of Care 171 mg/dl (65-105)
[2022-02-13] MEDS: INSULIN GLARGINE (*BKC) 100 UNITS/ML 48 UNITS SUB-Q (08:39)
[2022-02-13] MEDS: METOPROLOL SUCCINATE EXT REL 50 MG TABCR 150 MG PO (08:42)
[2022-02-13] MEDS: SENNA/DOCUSATE SODIUM TABLET 1 TAB PO (08:42)
[2022-02-13] MEDS: FLUTICASONE PROPIONATE 0.05% NA SPR 16 GM BTL (*BKC) 1 SPRAY NASAL ×2 (08:42→20:50)
[2022-02-13] MEDS: hydrALAZINE HCL 25 MG TABLET PO ×3 (08:42→17:24)
[2022-02-13] MEDS: FERROUS SULFATE 324 MG TABLET PO ×2 (08:42→17:24)
[2022-02-13] MEDS: calcium polycarbophiL 625 MG TABLET PO ×2 (08:42→17:24)
[2022-02-13] MEDS: LORATADINE 10 MG TABLET PO (08:42)
[2022-02-13] MEDS: MECLIZINE HCL 25 MG TABLET PO ×3 (08:42→20:50)
[2022-02-13] MEDS: LOSARTAN POTASSIUM 50 MG TABLET PO ×2 (08:43→17:25)
[2022-02-13] MEDS: CHLORTHALIDONE 25 MG TABLET PO (08:43)
[2022-02-13] MEDS: PANTOPRAZOLE 40 MG TABLET PO (08:43)
[2022-02-13] MEDS: ASPIRIN 81 MG CHEWABLE TABLET PO (08:43)
[2022-02-13] MEDS: amLODIPine BESYLATE 5 MG TABLET PO ×2 (08:43→17:24)
[2022-02-13] MEDS: POTASSIUM CHLORIDE 20 MEQ TABLET.ER 40 MEQ PO ×2 (08:43→17:25)
[2022-02-13] MEDS: polyethylene glycoL 3350 17 GM POWD.PACK PO (08:44)
[2022-02-13] MEDS: GLIMEPIRIDE 2 MG TABLET 4 MG PO (08:44)
[2022-02-13] MEDS: ATORVASTATIN 40 MG TABLET 80 MG PO (08:44)
[2022-02-13 11:49] LABS: Glucose Point of Care 233 mg/dl (65-105)
[2022-02-13] MEDS: INSULIN ASPART (*BKC) 100 UNITS/ML SUB-Q (12:05)
--- NOTE | 2022-02-13 13:18 | PM.IMPN ---
Progress Note: A&P Assessment and Plan (1) Vertigo: Code(s): R42 - Dizziness and giddiness Status: Acute Assessment and Plan: - Continue Meclizine in setting of known new CVA's. - Neurology and Cardiology covering. - PT evaluation and recs for safety. - Monitor. (2) Nausea & vomiting: Qualifiers: Vomiting type: unspecified Qualified Code(s): R11.2 - Nausea with vomiting, unspecified Code(s): R11.2 - Nausea with vomiting, unspecified Status: Acute Assessment and Plan: - Continue Supportive care with Fluids and Anti-emetics as needed. (3) General weakness: Code(s): R53.1 - Weakness Status: Acute Assessment and Plan: - PT/OT/Fall precautions. - Etiology 2/2 CVA vs. Deconditioning as pt. has been here for 9 days. (4) Renal mass: Code(s): N28.89 - Other specified disorders of kidney and ureter Status: Acute Assessment and Plan: - CT shows a 7 mm exophytic enhancing mass in the right kidney upper pole suspicious for renal cell carcinoma. - Will need follow-up with Urology as an outpatient. (5) Insulin dependent type 2 diabetes mellitus: Code(s): E11.9 - Type 2 diabetes mellitus without complications; Z79.4 - salvage determiner (current) use of insulin Status: Acute Assessment and Plan: - A1C: 9.7 - Continue SSI - Continue Basal - Hypoglycemia protocol - Glucose checks continued. - Diabetic diet - Continue Amaryl. (6) Hypertension: Qualifiers: Hypertension type: unspecified Qualified Code(s): I10 - Essential (primary) hypertension Code(s): I10 - Essential (primary) hypertension Status: Acute Assessment and Plan: - Continue home medications at current dosages in light of permissive HTN likely allowed. - Cardiology is following as is Neurology. Maximum BP in 24 hours is 151/76. (7) Obstructive sleep apnea on CPAP: Code(s): G47.33 - Obstructive sleep apnea (adult) (pediatric); Z99.89 - Dependence on other enabling machines and devices Status: Chronic Assessment and Plan: - CPAP continued, home settings. (8) Gastroesophageal reflux disease: Qualifiers: Esophagitis presence: esophagitis presence not specified Qualified Code(s): K21.9 - Gastro-esophageal reflux disease without esophagitis Code(s): K21.9 - Gastro-esophageal reflux disease without esophagitis Status: Acute Assessment and Plan: - Continue PPI therapy with Protonix 40 mg po daily. - Continue Anti-emetics as needed. (9) Abdominal pain: Qualifiers: Abdominal location: generalized Qualified Code(s): R10.84 - Generalized abdominal pain Code(s): R10.9 - Unspecified abdominal pain Status: Acute Assessment and Plan: - CT negative for any acute findings to explain presenting pain. - Pain has improved now. - Monitor. (10) Cerebellar stroke: Code(s): I63.9 - Cerebral infarction, unspecified Status: Acute Assessment and Plan: - As evidenced by MRI of brain that shows a couple small acute infarcts in the Cerebellar hemisphere. - PT ordered. - SNF at discharge. - Neurology and cardiology covering. Time Spent With Patient Time with patient: 15 - 25 minutes Subjective Date/time seen: 02/13/22 1200 This pt. was examined at the bedside today in interval assessment after he was admitted with new CVA. His only complaint today was that of being increasingly tired. No pain, N/V/D and no urological complaint. He is attempting to participate with therapy, but it is noted that he is very tired. He will be going to [facility] at discharge. Cardiology is covering and his Plavix has been changed to Xarelto. ECHO is unremarkable for any new findings. DANIEL showed severe left atrium with a large amount of spontaneous contrast of concern for a post-thrombotic state. No carotid disease identified and no evidence of Endoc
[2022-02-13 16:30] LABS: Glucose Point of Care 177 mg/dl (65-105)
[2022-02-13] MEDS: RIVAROXABAN 20 MG TABLET PO (17:25)
[2022-02-13] MEDS: INSULIN GLARGINE (*BKC) 100 UNITS/ML 25 UNITS SUB-Q (20:50)
[2022-02-13 21:10] LABS: Glucose Point of Care 226 mg/dl (65-105)
[2022-02-14] VITALS (18 sets, daily range): BP systolic 132–161; BP diastolic 61–84; PULSE 61–80; RESP 12–21; TEMP 36.2–36.8; O2SAT 95–100
[2022-02-14 05:44] LABS: Basophils Absolute Auto 0.1 K/mm3 (0.0-0.1); Eosinophils Absolute Auto 0.2 K/mm3 (0-0.3); Eosinophils Percent Auto 2.4 % (0-4.4); Hematocrit 45.7 % (42.0-52.0); Hemoglobin 14.4 g/dL (14.0-18.0); Immature Granulocyte Absolute 0.03 K/mm3 (0.00-0.031); Immature Granulocyte Percent A 0.4 % (0-0.5); Lymphocytes Absolute Auto 1.81 K/mm3 (0.9-3.2); Lymphocytes Percent Auto 22.1 % (18.3-44.2); Mean Corpuscular HGB Conc 31.5 g/dl (32-36); Mean Corpuscular Hemoglobin 27.4 pg (26-34); Mean Corpuscular Volume 86.9 fl (80-100); Mean Platelet Volume 10.5 fl (7.4-10.4); Monocytes Absolute Auto 1.2 K/mm3 (0.1-0.6); Monocytes Percent Auto 14.8 % (2.6-8.5); Neutrophils Absolute Auto 4.9 K/mm3 (1.3-6.7); Neutrophils Percent Auto 59.3 % (45.5-73.1); Platelet Count Result 268 k/mm3 (150-375); Red Blood Count 5.26 M/mm3 (4.6-6.20); White Blood Count 8.2 K/mm3 (4.5-10.0)
[2022-02-14 05:55] LABS: Alanine Aminotransferase 19 U/L (4-50); Albumin Level 3.4 g/dL (3.5-5.1); Alkaline Phosphatase 105 U/L (38-126); Anion Gap 6 mmol/L (8-16); Aspartate Amino Transferase 19 U/L (17-59); Bilirubin,Total 0.4 mg/dL (0.2-1.3); Blood Urea Nitrogen 24 mg/dL (9-20); Calcium 8.7 mg/dL (8.4-10.2); Carbon Dioxide 25 mmol/L (22-30); Chloride 101 mmol/L (98-107); Estimated CRCL calculation 54 ml/min; Estimated Glomerular Filt Rate 59; Glucose 131 mg/dL (65-110); Magnesium 1.8 mg/dL (1.6-2.3); Potassium 3.5 mmol/L (3.4-5.0); Sodium 132 mmol/L (137-145)
[2022-02-14] MEDS: MECLIZINE HCL 25 MG TABLET PO ×3 (06:08→20:46)
[2022-02-14 07:38] LABS: Glucose Point of Care 118 mg/dl (65-105)
[2022-02-14] MEDS: FLUTICASONE PROPIONATE 0.05% NA SPR 16 GM BTL (*BKC) 1 SPRAY NASAL ×2 (08:26→20:46)
[2022-02-14] MEDS: PANTOPRAZOLE 40 MG TABLET PO (08:26)
[2022-02-14] MEDS: METOPROLOL SUCCINATE EXT REL 50 MG TABCR 150 MG PO (08:26)
[2022-02-14] MEDS: polyethylene glycoL 3350 17 GM POWD.PACK PO (08:26)
[2022-02-14] MEDS: POTASSIUM CHLORIDE 20 MEQ TABLET.ER 40 MEQ PO ×2 (08:27→16:21)
[2022-02-14] MEDS: ATORVASTATIN 40 MG TABLET 80 MG PO (08:28)
[2022-02-14] MEDS: amLODIPine BESYLATE 5 MG TABLET PO ×2 (08:28→16:20)
[2022-02-14] MEDS: CHLORTHALIDONE 25 MG TABLET PO (08:28)
[2022-02-14] MEDS: calcium polycarbophiL 625 MG TABLET PO ×2 (08:28→16:20)
[2022-02-14] MEDS: GLIMEPIRIDE 2 MG TABLET 4 MG PO (08:28)
[2022-02-14] MEDS: FERROUS SULFATE 324 MG TABLET PO ×2 (08:28→16:20)
[2022-02-14] MEDS: LORATADINE 10 MG TABLET PO (08:28)
[2022-02-14] MEDS: ASPIRIN 81 MG CHEWABLE TABLET PO (08:28)
[2022-02-14] MEDS: hydrALAZINE HCL 25 MG TABLET PO ×3 (08:28→16:21)
[2022-02-14] MEDS: INSULIN GLARGINE (*BKC) 100 UNITS/ML 48 UNITS SUB-Q (08:34)
[2022-02-14] MEDS: LOSARTAN POTASSIUM 50 MG TABLET PO ×2 (08:36→16:21)
--- NOTE | 2022-02-14 09:24 | PCNWS ---
Weekly nutritional screen. Patient is tolerating current heart healthy diet with 100% adequate intake. No weight loss reported. No nutritional needs at this time.
--- NOTE | 2022-02-14 11:27 | PCNSR ---
On 02/14/22, the student, Ester Puente, provided care and completed [facility] documentation on this patient. I have reviewed the student's documentation and agree with the findings.
[2022-02-14 11:55] LABS: Glucose Point of Care 268 mg/dl (65-105)
[2022-02-14] MEDS: INSULIN ASPART (*BKC) 100 UNITS/ML SUB-Q (12:04)
--- NOTE | 2022-02-14 12:20 | PM.IMPN ---
Progress Note: A&P Assessment and Plan (1) Vertigo: Code(s): R42 - Dizziness and giddiness Status: Acute Assessment and Plan: - Continue Meclizine in setting of known new CVA's. Dosing was changed to specifically q8 HRS instead of TID in hopes he would be more alert with therapy to participate and this has proven useful. - Neurology and Cardiology covering and managing. - PT evaluation and recs for safety. - Monitor. - OT evaluation (2) Nausea & vomiting: Qualifiers: Vomiting type: unspecified Qualified Code(s): R11.2 - Nausea with vomiting, unspecified Code(s): R11.2 - Nausea with vomiting, unspecified Status: Acute Assessment and Plan: - Continue Supportive care with Fluids and Anti-emetics as needed. - Still complaining of transient nausea. Zofran and Compazine are ordered,. (3) General weakness: Code(s): R53.1 - Weakness Status: Acute Assessment and Plan: - PT/OT/Fall precautions and recommendations made. To SNF at Discharge. - Etiology 2/2 CVA vs. Deconditioning as pt. has been here for 9 days. (4) Renal mass: Code(s): N28.89 - Other specified disorders of kidney and ureter Status: Acute Assessment and Plan: - CT shows a 7 mm exophytic enhancing mass in the right kidney upper pole suspicious for renal cell carcinoma. - Will need follow-up with Urology as an outpatient. 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 - Diabetic diet - Continue Amaryl. (6) Hypertension: Qualifiers: Hypertension type: unspecified Qualified Code(s): I10 - Essential (primary) hypertension Code(s): I10 - Essential (primary) hypertension Status: Acute Assessment and Plan: - BP over night did reach >100 diastolic. - PRN Hydralazine is ordered at this time with SBP >180 and DBP >95. - Continue home medications - Monitor (7) Obstructive sleep apnea on CPAP: Code(s): G47.33 - Obstructive sleep apnea (adult) (pediatric); Z99.89 - Dependence on other enabling machines and devices Status: Chronic Assessment and Plan: - CPAP continued, home settings. (8) Gastroesophageal reflux disease: Qualifiers: Esophagitis presence: esophagitis presence not specified Qualified Code(s): K21.9 - Gastro-esophageal reflux disease without esophagitis Code(s): K21.9 - Gastro-esophageal reflux disease without esophagitis Status: Acute Assessment and Plan: - Continue PPI therapy with Protonix 40 mg po daily. - Continue Anti-emetics as needed. (9) Abdominal pain: Qualifiers: Abdominal location: generalized Qualified Code(s): R10.84 - Generalized abdominal pain Code(s): R10.9 - Unspecified abdominal pain Status: Acute Assessment and Plan: - CT negative for any acute findings to explain presenting pain. - Pain has improved now. - Monitor. (10) Cerebellar stroke: Code(s): I63.9 - Cerebral infarction, unspecified Status: Acute Assessment and Plan: - As evidenced by MRI of brain that shows a couple small acute infarcts in the Cerebellar hemisphere. - PT ordered. - SNF at discharge. - Neurology and cardiology covering. - Continue Xarelto 20 mg po daily. Time Spent With Patient Time with patient: 15 - 25 minutes Subjective Date/time seen: 02/14/22 0938 This pt. was examined at the bedside today in interval assessment. He was Hypertensive overnight with DBP being in the low 100s. It corrected with administration of his AM medication. He reports an intermittent headache and has one now. He has prn Tylenol ordered for this. He was kept today for further monitoring of his
[2022-02-14 16:15] LABS: Glucose Point of Care 173 mg/dl (65-105)
[2022-02-14] MEDS: RIVAROXABAN 20 MG TABLET PO (16:22)
[2022-02-14] MEDS: INSULIN GLARGINE (*BKC) 100 UNITS/ML 25 UNITS SUB-Q (20:46)
[2022-02-14 20:58] LABS: Glucose Point of Care 250 mg/dl (65-105)
[2022-02-15] VITALS (15 sets, daily range): BP systolic 131–156; BP diastolic 55–79; PULSE 63–71; RESP 14–20; TEMP 36.4–36.5; O2SAT 95–98
[2022-02-15 05:15] LABS: Basophils Absolute Auto 0.1 K/mm3 (0.0-0.1); Eosinophils Absolute Auto 0.2 K/mm3 (0-0.3); Eosinophils Percent Auto 2.4 % (0-4.4); Hemoglobin 14.7 g/dL (14.0-18.0); Immature Granulocyte Absolute 0.03 K/mm3 (0.00-0.031); Immature Granulocyte Percent A 0.4 % (0-0.5); Lymphocytes Absolute Auto 1.94 K/mm3 (0.9-3.2); Lymphocytes Percent Auto 24.5 % (18.3-44.2); Mean Corpuscular Hemoglobin 27.5 pg (26-34); Mean Platelet Volume 10.2 fl (7.4-10.4); Monocytes Absolute Auto 1.2 K/mm3 (0.1-0.6); Monocytes Percent Auto 15.4 % (2.6-8.5); Neutrophils Absolute Auto 4.5 K/mm3 (1.3-6.7); Neutrophils Percent Auto 56.3 % (45.5-73.1); Platelet Count Result 265 k/mm3 (150-375); Red Blood Count 5.35 M/mm3 (4.6-6.20); White Blood Count 7.9 K/mm3 (4.5-10.0)
[2022-02-15 05:38] LABS: Alanine Aminotransferase 18 U/L (4-50); Albumin Level 3.6 g/dL (3.5-5.1); Alkaline Phosphatase 98 U/L (38-126); Anion Gap 7 mmol/L (8-16); Aspartate Amino Transferase 21 U/L (17-59); Bilirubin,Total 0.5 mg/dL (0.2-1.3); Blood Urea Nitrogen 24 mg/dL (9-20); Calcium 8.7 mg/dL (8.4-10.2); Carbon Dioxide 24 mmol/L (22-30); Chloride 101 mmol/L (98-107); Estimated CRCL calculation 59 ml/min; Estimated Glomerular Filt Rate > 60; Glucose 138 mg/dL (65-110); Magnesium 1.9 mg/dL (1.6-2.3); Potassium 3.9 mmol/L (3.4-5.0); Sodium 132 mmol/L (137-145)
[2022-02-15] MEDS: MECLIZINE HCL 25 MG TABLET PO ×3 (06:15→21:18)
[2022-02-15 07:43] LABS: Glucose Point of Care 134 mg/dl (65-105)
[2022-02-15] MEDS: POTASSIUM CHLORIDE 20 MEQ TABLET.ER 40 MEQ PO ×2 (08:23→16:44)
[2022-02-15] MEDS: hydrALAZINE HCL 25 MG TABLET PO ×3 (08:24→16:45)
[2022-02-15] MEDS: METOPROLOL SUCCINATE EXT REL 50 MG TABCR 150 MG PO (08:24)
[2022-02-15] MEDS: LOSARTAN POTASSIUM 50 MG TABLET PO ×2 (08:25→16:45)
[2022-02-15] MEDS: amLODIPine BESYLATE 5 MG TABLET PO ×2 (08:25→16:44)
[2022-02-15] MEDS: FERROUS SULFATE 324 MG TABLET PO ×2 (08:26→16:43)
[2022-02-15] MEDS: GLIMEPIRIDE 2 MG TABLET 4 MG PO (08:26)
[2022-02-15] MEDS: ASPIRIN 81 MG CHEWABLE TABLET PO (08:26)
[2022-02-15] MEDS: calcium polycarbophiL 625 MG TABLET PO ×2 (08:26→16:44)
[2022-02-15] MEDS: PANTOPRAZOLE 40 MG TABLET PO (08:27)
[2022-02-15] MEDS: CHLORTHALIDONE 25 MG TABLET PO (08:27)
[2022-02-15] MEDS: ATORVASTATIN 40 MG TABLET 80 MG PO (08:27)
[2022-02-15] MEDS: LORATADINE 10 MG TABLET PO (08:28)
[2022-02-15] MEDS: polyethylene glycoL 3350 17 GM POWD.PACK PO (08:28)
[2022-02-15] MEDS: FLUTICASONE PROPIONATE 0.05% NA SPR 16 GM BTL (*BKC) 1 SPRAY NASAL ×2 (08:28→21:18)
[2022-02-15] MEDS: INSULIN GLARGINE (*BKC) 100 UNITS/ML 48 UNITS SUB-Q (08:37)
[2022-02-15 11:28] LABS: Glucose Point of Care 255 mg/dl (65-105)
[2022-02-15] MEDS: INSULIN ASPART (*BKC) 100 UNITS/ML SUB-Q ×2 (11:51→16:41)
--- NOTE | 2022-02-15 12:16 | WPDNEUROPN ---
Progress Note: A&P Additional Plan continue the treatment as Time Spent With Patient Time with patient: 15 - 25 minutes Subjective Date/time seen: 02/15/22 12:16 76 years old admitted to the hospital with the complaints of positional vertigo in addition to orthostatic hypotension for the possibility of posterior circulation dysfunction and we documented right occipital infarct but unremarkable CTA and also MRI of the brain documenting couple of small acute infarcts in the right cerebellar hemisphere and small old infarct in the right occipital lobe and in left cerebellar hemisphere as well raising the possibility of posterior circulation TIA, subsequently cardiology consultation was obtained as patient had nose obvious atrial fibrillation, or obvious finding of endocarditis DANIEL was suggested bubble evaluate for cardiac source of emboli or any source of emboli from the aorta. Transesophageal echocardiogram documented mild mitral regurgitation and trivial aortic regurgitation and redundant atrial septum but no evidence of shunt by color Doppler though with spontaneous left atrial contrast or smoke was noted, patient was seen by Dr. Carver with excellent discussion off the echocardiogram and he suggested to shift from clopidogrel to Xarelto which I agree Review of Systems Review of Systems: All systems reviewed & are unremarkable except as noted in HPI and below Exam Const: General: cooperative, comfortable and no acute distress HENMT: Head: normal to inspection and normocephalic Ears: hearing grossly normal bilaterally Eyes: General: appearance normal, both eyes and all related structures Visual Goode: normal visual goode by confrontation Alignment and Position: alignment normal Periorbital: periorbital findings normal Eyelids: eyelids normal Conjunctivae: conjunctivae normal Sclera: sclerae normal Cornea: corneas normal Pupils: Equal, round and reactive pupils present Neck: Neck: normal visual inspection and no lymphadenopathy Resp: Effort & Inspection: normal respiratory effort Cardio: Rate: regular rate Rhythm: regular rhythm Neuro: General: oriented to person, oriented to place and oriented to time Cranial nerves: Yes CN's II-XII intact bilaterally Cognition (Neuro): normal cognition Speech: normal speech ( slow) Gait exam (Neuro): Antalgic gait present and Ataxic gait present Motor exam (neuro): Pronator motor function not present, No tremor noted and Normal motor muscle tone present throughout Deep tendon reflexes (DTR's): Right triceps reflex intensity grade: 1+, Left triceps reflex intensity grade: 1+, Rt Biceps (C5, C6): 1+, Left biceps reflex intensity grade: 1+, Right brachioradialis reflex intensity grade: 1+, Left brachioradialis reflex intensity grade: 1+, Right patellar reflex intensity grade: 1+, Left patellar reflex intensity grade: 1+, Right ankle reflex intensity grade: 1+ and Left ankle reflex intensity grade: 1+ Coordination: Romberg test positive Objective Data Vital Signs Vital Signs: Vital Signs - 24 hr 02/14/22 14:22 02/14/22 16:00 02/14/22 20:00 Temperature 36.4 C Pulse Rate 61 63 64 Respiratory Rate 18 Blood Pressure 150/61 H Pulse Oximetry 97 02/14/22 20:27 02/14/22 20:28 02/14/22 20:30 Temperature 36.8 C Pulse Rate 69 Respiratory Rate 16 Blood Pressure 146/64 H 161/63 H 158/70 H Pulse Oximetry 98 02/14/22 22:12 02/14/22 22:43 02/15/22 00:00 Temperature Pulse Rate 66 66 66 Respiratory Rate 12 Blood Pressure Pulse Oximetry 96 95 02/15/22 03:32 02/15/22 04:00 02/15/22 05:48 Temperature 36.4 C Pulse Rate 68 71 69 Respiratory Rate 14 20 Blood Pressure 132/79 Pulse Oximetry 95 98 02/15/22 08:03 02/15/22 11:05 02/15/22 11:08 Temperature Pulse Rate 70 Respiratory Rate Blood Pressure 156/68 H 131/79 Pulse Oximetry 02/15/22 11:14 02/15/22 11:54 Temperature Pulse Rate 65 Respiratory Rate Blood Pressure 141/7
[2022-02-15 16:22] LABS: Glucose Point of Care 246 mg/dl (65-105)
[2022-02-15] MEDS: RIVAROXABAN 20 MG TABLET PO (16:45)
--- NOTE | 2022-02-15 18:16 | PM.IMPN ---
Progress Note: A&P Assessment and Plan (1) PVCs (premature ventricular contractions): Code(s): I49.3 - Ventricular premature depolarization Status: Acute (2) History of multiple strokes: Code(s): Z86.73 - Personal history of transient ischemic attack (TIA), and cerebral infarction without residual deficits Status: Acute (3) Abdominal pain: Qualifiers: Abdominal location: generalized Qualified Code(s): R10.84 - Generalized abdominal pain Code(s): R10.9 - Unspecified abdominal pain Status: Acute (4) Insulin dependent type 2 diabetes mellitus: Code(s): E11.9 - Type 2 diabetes mellitus without complications; 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 Status: Acute (5) Cerebellar stroke: Code(s): I63.9 - Cerebral infarction, unspecified Status: Acute (6) Vertigo: Code(s): R42 - Dizziness and giddiness Status: Acute (7) Gastroesophageal reflux disease: Qualifiers: Esophagitis presence: esophagitis presence not specified Qualified Code(s): K21.9 - Gastro-esophageal reflux disease without esophagitis Code(s): K21.9 - Gastro-esophageal reflux disease without esophagitis Status: Acute (8) Hypertension: Qualifiers: Hypertension type: unspecified Qualified Code(s): I10 - Essential (primary) hypertension Code(s): I10 - Essential (primary) hypertension Status: Acute (9) Obstructive sleep apnea on CPAP: Code(s): G47.33 - Obstructive sleep apnea (adult) (pediatric); Z99.89 - Dependence on other enabling machines and devices Status: Chronic (10) Renal mass: Code(s): N28.89 - Other specified disorders of kidney and ureter Status: Acute (11) General weakness: Code(s): R53.1 - Weakness Status: Acute Additional Plan 02/14/22 - Continue Meclizine in setting of known new CVA's. Dosing was changed to specifically q8 HRS instead of TID in hopes he would be more alert with therapy to participate and this has proven useful. - Neurology and Cardiology covering and managing. - PT evaluation and recs for safety. - Monitor. - OT evaluation - Continue Supportive care with Fluids and Anti-emetics as needed. - Still complaining of transient nausea. Zofran and Compazine are ordered,. - PT/OT/Fall precautions and recommendations made. To SNF at Discharge. - Etiology 2/2 CVA vs. Deconditioning as pt. has been here for 9 days. - CT shows a 7 mm exophytic enhancing mass in the right kidney upper pole suspicious for renal cell carcinoma. - Will need follow-up with Urology as an outpatient. - A1C: 9.7 - Continue SSI - Continue Basal - Hypoglycemia protocol - Glucose checks continued. - Diabetic diet - Continue Amaryl. - BP over night did reach >100 diastolic. - PRN Hydralazine is ordered at this time with SBP >180 and DBP >95. - Continue home medications - Monitor - CPAP continued, home settings. - Continue PPI therapy with Protonix 40 mg po daily. - Continue Anti-emetics as needed. - CT negative for any acute findings to explain presenting pain. - Pain has improved now. - Monitor. - As evidenced by MRI of brain that shows a couple small acute infarcts in the Cerebellar hemisphere. - PT ordered. - SNF at discharge. - Neurology and cardiology covering. - Continue Xarelto 20 mg po daily 02/15/22 doing ok waiting for SNF cont current care will discuss w [facility] in am Subjective Date/time seen: 02/15/22 18:16 pt doing ok would like to go to rehab no new complaints Exam Narrative: GEN: NAD, AAOx3, cooperative obese HEENT: NCAT, MMM, EOMI Neck: no JVD Heart: S1S2 RRR Lungs: CTA B/l Abd: soft, NT, ND, bowel sounds normoactive Ext: moves all, no cyanosis, no clubbing, no edema Neuro: cognition WNL, moves all extremities Objective Data Vital Signs Vital Signs: Vital Signs - 24 hr 02/14/22 20:00 02/14/22 20:27 02/14/22 20:28 Temperature 98.3 F Pulse Rate 64 69 R
[2022-02-15] MEDS: INSULIN GLARGINE (*BKC) 100 UNITS/ML 25 UNITS SUB-Q (21:18)
[2022-02-15 21:34] LABS: Glucose Point of Care 249 mg/dl (65-105)
[2022-02-16] VITALS (9 sets, daily range): BP systolic 130–159; BP diastolic 69; PULSE 63–69; RESP 12–20; TEMP 36–36.5; O2SAT 96–99
--- NOTE | 2022-02-16 04:49 | PCRCNOTE ---
Pt's machine checked at 04:40 to ensure it is plugged into a red outlet in anticipation of the scheduled 05:00 generator test.
[2022-02-16] MEDS: MECLIZINE HCL 25 MG TABLET PO ×2 (06:15→13:09)
[2022-02-16 07:40] LABS: Glucose Point of Care 147 mg/dl (65-105)
[2022-02-16] MEDS: FERROUS SULFATE 324 MG TABLET PO ×2 (08:08→16:30)
[2022-02-16] MEDS: POTASSIUM CHLORIDE 20 MEQ TABLET.ER 40 MEQ PO ×2 (08:08→16:31)
[2022-02-16] MEDS: METOPROLOL SUCCINATE EXT REL 50 MG TABCR 150 MG PO (08:09)
[2022-02-16] MEDS: CHLORTHALIDONE 25 MG TABLET PO (08:09)
[2022-02-16] MEDS: ASPIRIN 81 MG CHEWABLE TABLET PO (08:09)
[2022-02-16] MEDS: FLUTICASONE PROPIONATE 0.05% NA SPR 16 GM BTL (*BKC) 1 SPRAY NASAL (08:12)
[2022-02-16] MEDS: calcium polycarbophiL 625 MG TABLET PO ×2 (08:12→16:30)
[2022-02-16] MEDS: GLIMEPIRIDE 2 MG TABLET 4 MG PO (08:13)
[2022-02-16] MEDS: polyethylene glycoL 3350 17 GM POWD.PACK PO (08:13)
[2022-02-16] MEDS: PANTOPRAZOLE 40 MG TABLET PO (08:13)
[2022-02-16] MEDS: ATORVASTATIN 40 MG TABLET 80 MG PO (08:14)
[2022-02-16] MEDS: LORATADINE 10 MG TABLET PO (08:15)
[2022-02-16] MEDS: INSULIN GLARGINE (*BKC) 100 UNITS/ML 48 UNITS SUB-Q (08:28)
[2022-02-16] MEDS: LOSARTAN POTASSIUM 50 MG TABLET PO ×2 (09:49→16:32)
[2022-02-16] MEDS: amLODIPine BESYLATE 5 MG TABLET 10 MG PO (09:50)
[2022-02-16 11:19] LABS: Glucose Point of Care 281 mg/dl (65-105)
[2022-02-16] MEDS: hydrALAZINE HCL 50 MG TABLET PO ×2 (11:26→16:32)
[2022-02-16] MEDS: INSULIN ASPART (*BKC) 100 UNITS/ML SUB-Q (11:27)
[2022-02-16] MEDS: ONDANSETRON INJ 4 MG/2 ML VIAL IV PUSH (13:09)
--- NOTE | 2022-02-16 13:48 | PM.DS ---
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 Status: Acute (6) Hypertension: Code(s): I10 - Essential (primary) hypertension Status: Acute (7) Obstructive sleep apnea on CPAP: Code(s): G47.33 - Obstructive sleep apnea (adult) (pediatric); Z99.89 - Dependence on other enabling machines and devices Status: Acute (8) Gastroesophageal reflux disease: Code(s): K21.9 - Gastro-esophageal reflux disease without esophagitis Status: Acute (9) Abdominal pain: Code(s): R10.9 - Unspecified abdominal pain Status: Acute DS: Discharge Diagnosis Discharge Diagnosis (1) PVCs (premature ventricular contractions): Code(s): I49.3 - Ventricular premature depolarization Status: Acute (2) History of multiple strokes: Code(s): Z86.73 - Personal history of transient ischemic attack (TIA), and cerebral infarction without residual deficits Status: Acute (3) Cerebellar stroke: Code(s): I63.9 - Cerebral infarction, unspecified Status: Acute (4) Abdominal pain: Qualifiers: Abdominal location: generalized Qualified Code(s): R10.84 - Generalized abdominal pain Code(s): R10.9 - Unspecified abdominal pain Status: Acute (5) Insulin dependent type 2 diabetes mellitus: Code(s): E11.9 - Type 2 diabetes mellitus without complications; 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 Status: Acute (6) Vertigo: Code(s): R42 - Dizziness and giddiness Status: Acute (7) Gastroesophageal reflux disease: Qualifiers: Esophagitis presence: esophagitis presence not specified Qualified Code(s): K21.9 - Gastro-esophageal reflux disease without esophagitis Code(s): K21.9 - Gastro-esophageal reflux disease without esophagitis Status: Acute (8) Obstructive sleep apnea on CPAP: Code(s): G47.33 - Obstructive sleep apnea (adult) (pediatric); Z99.89 - Dependence on other enabling machines and devices Status: Chronic (9) Renal mass: Code(s): N28.89 - Other specified disorders of kidney and ureter Status: Acute (10) Nausea & vomiting: Qualifiers: Vomiting type: unspecified Qualified Code(s): R11.2 - Nausea with vomiting, unspecified Code(s): R11.2 - Nausea with vomiting, unspecified Status: Acute (11) General weakness: Code(s): R53.1 - Weakness Status: Acute (12) Hypertension: Qualifiers: Hypertension type: unspecified Qualified Code(s): I10 - Essential (primary) hypertension Code(s): I10 - Essential (primary) hypertension Status: Acute DS: Summary Hospital Course Hospital Course: 76-year-old gentleman presented to the hospital reporting a generalized feeling of being unwell and what the admitting provider thought to be describing as vertigo. Given history of CVA, he was sent for stat CT of the brain and CTA of the brain and carotids. He was placed on telemetry monitoring for overnight and neuro checks were ordered. MRI of the patient revealed a couple of small acute infarcts in the right cerebellar hemisphere, small old infarcts in the right occipital and a couple of small old infarct
[2022-02-16 14:11] LABS: EDCOVIDSCREEN Negative (Negative)
[2022-02-16 16:21] LABS: Glucose Point of Care 188 mg/dl (65-105)
[2022-02-16] MEDS: RIVAROXABAN 20 MG TABLET PO (16:31)
== END 2022-02-16 17:00 | DRG 66 ==
LOC: ANHED 07:34 → ANH2MED 14:43
PROVIDERS: Hospitalist; Internal Medicine; Physician Assistant; Specialist; Admitting Provider Internal Medicine; Emergency Provider Emergency Medicine; PCP Family Medicine; Visit Provider Nurse Practitioner Adult Health
PROC: (CPT 93312; principal; 2022-02-11 10:30)
DX: I63.9 Cerebral infarction, unspecified (principal); Z20.822 Contact with and (suspected) exposure to COVID-19; Z86.73 Personal history of transient ischemic attack (TIA), and cerebral infarction without residual deficits; I10 Essential (primary) hypertension; R11.2 Nausea with vomiting, unspecified; J32.9 Chronic sinusitis, unspecified; E78.5 Hyperlipidemia, unspecified; Z79.4 Long term (current) use of insulin; E11.65 Type 2 diabetes mellitus with hyperglycemia; K21.9 Gastro-esophageal reflux disease without esophagitis; G47.33 Obstructive sleep apnea (adult) (pediatric); Z85.46 Personal history of malignant neoplasm of prostate; Z92.3 Personal history of irradiation; M19.90 Unspecified osteoarthritis, unspecified site; Z79.82 Long term (current) use of aspirin; N28.89 Other specified disorders of kidney and ureter; K58.9 Irritable bowel syndrome, unspecified; R53.1 Weakness; H83.09 Labyrinthitis, unspecified ear; K59.00 Constipation, unspecified; E87.6 Hypokalemia; I49.3 Ventricular premature depolarization; Z96.653 Presence of artificial knee joint, bilateral; Z87.11 Personal history of peptic ulcer disease
CPT/HCPCS: 36415; 70496; 70498; 70551; 74170; 74177; 80048; 80053; 80061; 81001; 82948; 83036; 83605; 83690; 83735; 84132; 84443; 84484; 85025; 85027; 87040; 87081; 87426; 87502; 87880; 93005; 93306; 93312; 93320; 93325; 93880; 96361; 96374; 96375; 96376; 97110; 97162; 97165; 97530; 97535; 99285; A9270; C9803; G0378; J0780; J1170; J1815; J2250; J2405; J3010; J7030; J7040; Q9967; U0003; U0005

== ENCOUNTER 2022-04-29 06:47 | Outpatient (CLI) | payer MEDICARE, SELFPAY ==
[2022-04-29 07:39] LABS: Hemoglobin A1C 7.1 % (<5.7)
[2022-04-29 07:43] LABS: Alanine Aminotransferase 16 U/L (6-50); Albumin Level 3.5 g/dL (3.5-5.1); Alkaline Phosphatase 94 U/L (38-126); Anion Gap 4 mmol/L (8-16); Aspartate Amino Transferase 19 U/L (17-59); Bilirubin,Total 0.4 mg/dL (0.2-1.3); Blood Urea Nitrogen 14 mg/dL (9-20); Calcium 8.4 mg/dL (8.4-10.2); Carbon Dioxide 26 mmol/L (22-30); Chloride 106 mmol/L (98-107); Cholesterol 122 mg/dL (0-200); Estimated Glomerular Filt Rate > 60; Glucose 91 mg/dL (65-110); HDL Direct 27 mg/dL; Potassium 3.9 mmol/L (3.4-5.0); Sodium 136 mmol/L (137-145); Triglycerides 100 mg/dL (<150)
[2022-04-29 07:53] LABS: LDL Cholesterol Direct 59 mg/dL
== END 2022-04-29 06:48 | disposition home or self-care (01) ==
PROVIDERS: PCP Family Medicine; Visit Provider Internal Medicine Interventional Cardiology
DX: E78.00 Pure hypercholesterolemia, unspecified (principal); I10 Essential (primary) hypertension; I49.3 Ventricular premature depolarization; E11.65 Type 2 diabetes mellitus with hyperglycemia
CPT/HCPCS: 36415; 80053; 80061; 83036; 83735

== ENCOUNTER 2023-01-02 06:46 | Outpatient (CLI) | payer MEDICARE, SELFPAY ==
[2023-01-02 08:18] LABS: Basophils Absolute Auto 0.1 K/mm3 (0.0-0.1); Basophils Percent Auto 1.6 % (0.2-1.2); Eosinophils Absolute Auto 0.2 K/mm3 (0-0.3); Hemoglobin 12.5 g/dL (14.0-18.0); Immature Granulocyte Absolute 0.03 K/mm3 (0.00-0.031); Immature Granulocyte Percent A 0.4 % (0-0.5); Lymphocytes Absolute Auto 1.64 K/mm3 (0.9-3.2); Lymphocytes Percent Auto 23.1 % (18.3-44.2); Mean Corpuscular HGB Conc 32.1 g/dl (32-36); Mean Corpuscular Volume 81.1 fl (80-100); Mean Platelet Volume 11.2 fl (7.4-10.4); Monocytes Absolute Auto 0.8 K/mm3 (0.1-0.6); Monocytes Percent Auto 11.3 % (2.6-8.5); Neutrophils Absolute Auto 4.3 K/mm3 (1.3-6.7); Neutrophils Percent Auto 60.6 % (45.5-73.1); Platelet Count Result 255 k/mm3 (150-375); Red Blood Count 4.81 M/mm3 (4.6-6.20); Red Cell Distribution Width 15.4 % (11.5-14.5); White Blood Count 7.1 K/mm3 (4.5-10.0)
[2023-01-02 08:18] LABS: Bacteria Urine None Seen /hpf; Non Pathogenic Casts 0-2; RBC Urine 0-2 /hpf (0-2); Squamous Epithelial Cell Urine None seen /hpf (Few)
[2023-01-02 08:34] LABS: Appearance Urine Clear (Clear); Bilirubin Urine Negative (Negative); Blood Urine Negative (Negative); Color Urine Yellow (Yellow); Glucose Urine UA 2+ mg/dL (Negative); Ketones Urine Negative (Negative); Leukocyte Esterase Ur Negative LEU/UL (Negative); Nitrate Urine Negative (Negative); Protein Urine 3+ mg/dL (Negative); Specific Grav Ur 1.019 (1.001-1.035); Urobilinogen Urine 0.2 mg/dL (<2.0); pH Urine 6.5 (5.0-9.0)
[2023-01-02 08:35] LABS: Add Urine Microscopic? YES
[2023-01-02 09:22] LABS: Creatinine Urine 104.2 mg/dL
[2023-01-02 09:31] LABS: Hemoglobin A1C 12.4 % (<5.7)
[2023-01-02 09:39] LABS: Alanine Aminotransferase 19 U/L (6-50); Albumin Level 3.5 g/dL (3.5-5.1); Alkaline Phosphatase 127 U/L (38-126); Aspartate Amino Transferase 18 U/L (17-59); Bilirubin,Total 0.5 mg/dL (0.2-1.3); Blood Urea Nitrogen 17 mg/dL (9-20); Calcium 8.5 mg/dL (8.4-10.2); Carbon Dioxide 25 mmol/L (22-30); Cholesterol 137 mg/dL (0-200); Estimated Glomerular Filt Rate > 60; Glucose 245 mg/dL (65-110); HDL Direct 37 mg/dL; Potassium 3.7 mmol/L (3.4-5.0); Sodium 134 mmol/L (137-145); Triglycerides 119 mg/dL (<150)
[2023-01-02 09:42] LABS: Anion Gap 5 mmol/L (8-16); Chloride 104 mmol/L (98-107)
[2023-01-02 09:51] LABS: LDL Cholesterol Direct 84 mg/dL
[2023-01-02 10:09] LABS: Microalbumin Urine Random > 1140.0 mg/L (0-16.7)
== END 2023-01-02 06:47 | disposition home or self-care (01) ==
PROVIDERS: PCP Family Medicine; Visit Provider Family Medicine
DX: E11.65 Type 2 diabetes mellitus with hyperglycemia (principal); I11.0 Hypertensive heart disease with heart failure; I50.32 Chronic diastolic (congestive) heart failure; E78.00 Pure hypercholesterolemia, unspecified
CPT/HCPCS: 36415; 80053; 80061; 81001; 82043; 83036; 84443; 85025; 87086; 87088

== ENCOUNTER 2023-11-06 12:02 | Emergency (ER) | payer MEDICARE, SELFPAY ==
[2023-11-06] VITALS (12 sets, daily range): BP systolic 146–164; BP diastolic 76–99; PULSE 60–77; RESP 16–20; TEMP 36.4; O2SAT 91–100
--- NOTE | ~2023-11-06 | XR_ITS ---
Right Humerus Technique: AP and lateral views were obtained. Clinical History: Trauma Findings: There is an oblique, comminuted, displaced fracture of the proximal third of the humeral sh aft. No distinct evidence for underlying pathologic lesion. Major distal fracture fragment is displac ed laterally by one full shaft width. Visualized joint spaces are grossly preserved. Soft tissues are unremarkable. Impression: Acute, oblique, comminuted, displaced fracture of the proximal third humeral shaft, as detailed above . Reviewed, dictated and finalized at location M. 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
--- NOTE | 2023-11-06 12:51 | ED.UPPEXIN ---
HPI - Extremity Injury (Upper) General Chief Complaint: Extremity Injury, Upper Stated Complaint: R SHOULDER DISLOCATION Time Seen by Provider: 11/06/23 12:30 Source: patient Mode of arrival: ambulatory Limitations: no limitations History of Present Illness HPI narrative: Dasha is a 78-year-old male patient presenting to the ER today via EMS for a right shoulder injury after falling this morning. Reports pain 10/10 to the right shoulder and humerus. Is not able to move his shoulder without significant pain. Swelling noted over the humerus however there is no open fracture. He denies hitting his head or any loss of consciousness. He denies neck pain. Related Data Home Medications Medication Instructions Recorded Confirmed aspirin 81 mg chewable tablet 81 mg PO DAILY 02/04/22 02/04/22 atorvastatin 40 mg tablet 40 mg PO DAILY 02/04/22 02/04/22 calcium polycarbophil 625 mg 625 mg PO BID 02/04/22 02/04/22 tablet (FiberCon) cetirizine 10 mg tablet (Zyrtec) 10 mg PO DAILY 02/04/22 02/04/22 chlorthalidone 25 mg tablet 25 mg PO DAILY 02/04/22 02/04/22 esomeprazole magnesium 40 mg 40 mg PO DAILY 02/04/22 02/04/22 capsule,delayed release ferrous sulfate 325 mg (65 mg 325 mg PO BID 02/04/22 02/04/22 iron) tablet glimepiride 4 mg tablet 4 mg PO DAILY 02/04/22 02/04/22 insulin degludec 200 unit/mL (3 25 unit subcut HS 02/04/22 02/04/22 mL) subcutaneous pen (Tresiba FlexTouch U-200 insulin) insulin degludec 200 unit/mL (3 48 unit subcut DAILY 02/04/22 02/04/22 mL) subcutaneous pen (Tresiba FlexTouch U-200 insulin) losartan 50 mg tablet 50 mg PO BID 02/04/22 02/04/22 metoprolol succinate 100 mg 150 mg PO DAILY 02/04/22 02/04/22 tablet,extended release 24 hr potassium chloride 10 mEq 10 meq PO DAILY 02/04/22 02/04/22 tablet,extended release semaglutide 1 mg/dose (4 mg/3 mL) 1 mg subcut WEEKLY 02/04/22 02/04/22 subcutaneous pen injector (Ozempic) Allergies Allergy/AdvReac Type Severity Reaction Status Date / Time No Known Allergies Allergy Verified 11/06/23 12:09 Review of Systems Review of Systems: Pertinent positives per HPI. Patient denies any fever, chills, rash, headache, visual changes, dizziness, cough, runny nose, sore throat, shortness of breath, chest pain, palpitations, nausea, vomiting, diarrhea, constipation, abdominal pain, or any urinary issues. [facility] Past Medical History Medical History Cerebrovascular accident (10/2000) Gastric ulcer Gastroesophageal reflux disease Hypertension Insulin dependent type 2 diabetes mellitus Irritable bowel syndrome Obstructive sleep apnea on CPAP Osteoarthritis Prostate cancer Status post radiation. PVCs (premature ventricular contractions) Treadmill stress test negative for angina pectoris (09/2002) Surgical History Surgical History History of arthroscopy of both knees History of bilateral knee replacement History of colonoscopy with polypectomy History of hemorrhoidectomy History of inguinal hernia repair History of tonsillectomy Family History Family History Mother Cerebrovascular accident Sibling Cancer Father Lung cancer Diabetes mellitus Social History Social History Social History: Surrogate decision maker: Nitesh Pedersen, kelechi. Code status: Full code. Lives alone. of cancer and 1 son of cancer. 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 Smoking status: Never smoker Second hand tobacco smoke exposure: Yes Alcohol intake: never Substance use: never Substance use type: does not use Additional living arrangements comments: Lives in his own home in [place]. 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 Spiritual care concerns: No Comments A
[2023-11-06] MEDS: ONDANSETRON INJ 4 MG/2 ML VIAL IV PUSH ×2 (13:01→13:45)
[2023-11-06] MEDS: MORPHINE SULFATE (*CRX) 4 MG/ML INJ IV PUSH (13:01)
[2023-11-06] MEDS: HYDROmorphone HCL INJ (*CRX) 1 MG/ML SYR IV PUSH (13:45)
--- NOTE | 2023-11-06 14:56 | PC.NURSE ---
attempted to place shoulder immobilizer multiple times with another RN without success. spoke with ED provider. orders to put pt in a sling. sling placed on the R. arm.
[2023-11-06] MEDS: HYDROmorphone HCL INJ (*CRX) 1 MG/ML SYR 0.5 MG IV PUSH (15:00)
== END 2023-11-06 15:19 | disposition short-term general hospital (02) ==
PROVIDERS: Emergency Provider Nurse Practitioner Family; PCP Family Medicine
DX: S42.291A Other displaced fracture of upper end of right humerus, initial encounter for closed fracture (principal); I10 Essential (primary) hypertension; E11.9 Type 2 diabetes mellitus without complications; G47.33 Obstructive sleep apnea (adult) (pediatric); M19.90 Unspecified osteoarthritis, unspecified site; K21.9 Gastro-esophageal reflux disease without esophagitis; K58.9 Irritable bowel syndrome, unspecified; Z96.653 Presence of artificial knee joint, bilateral; Z85.46 Personal history of malignant neoplasm of prostate; Z86.73 Personal history of transient ischemic attack (TIA), and cerebral infarction without residual deficits; Z79.82 Long term (current) use of aspirin; Z79.85 Long-term (current) use of injectable non-insulin antidiabetic drugs; Z79.4 Long term (current) use of insulin; W19.XXXA Unspecified fall, initial encounter
CPT/HCPCS: 73060; 96374; 96375; 96376; 99284; 99285; A4565; J1170; J2270; J2405

== ENCOUNTER 2023-12-04 08:46 | Outpatient (CLI) | payer MEDICARE, SELFPAY ==
[2023-12-04 10:10] LABS: Basophils Absolute Auto 0.1 K/mm3 (0.0-0.1); Basophils Percent Auto 1.1 % (0.2-1.2); Eosinophils Absolute Auto 0.3 K/mm3 (0-0.3); Eosinophils Percent Auto 3.9 % (0-4.4); Hematocrit 37.3 % (42.0-52.0); Hemoglobin 11.6 g/dL (14.0-18.0); Immature Granulocyte Absolute 0.02 K/mm3 (0.00-0.031); Immature Granulocyte Percent A 0.3 % (0-0.5); Lymphocytes Absolute Auto 1.06 K/mm3 (0.9-3.2); Lymphocytes Percent Auto 15.2 % (18.3-44.2); Mean Corpuscular HGB Conc 31.1 g/dl (32-36); Mean Corpuscular Hemoglobin 26.2 pg (26-34); Mean Corpuscular Volume 84.4 fl (80-100); Mean Platelet Volume 10.3 fl (7.4-10.4); Monocytes Absolute Auto 0.6 K/mm3 (0.1-0.6); Monocytes Percent Auto 8.5 % (2.6-8.5); Platelet Count Result 297 k/mm3 (150-375); Red Blood Count 4.42 M/mm3 (4.6-6.20); Red Cell Distribution Width 14.9 % (11.5-14.5)
[2023-12-04 10:14] LABS: Appearance Urine Clear (Clear); Bacteria Urine None Seen /hpf; Bilirubin Urine Negative (Negative); Blood Urine Negative (Negative); Color Urine Yellow (Yellow); Glucose Urine UA Negative (Negative); Ketones Urine Negative (Negative); Leukocyte Esterase Ur Negative LEU/UL (Negative); Nitrate Urine Negative (Negative); Non Pathogenic Casts 0-2; Protein Urine 3+ mg/dL (Negative); RBC Urine 0-2 /hpf (0-2); Specific Grav Ur 1.015 (1.001-1.035); Squamous Epithelial Cell Urine None seen /hpf (Few); WBC Urine 0-5 /hpf
[2023-12-04 10:15] LABS: Add Urine Microscopic? YES
[2023-12-04 10:20] LABS: Alanine Aminotransferase 17 U/L (6-50); Albumin Level 3.4 g/dL (3.5-5.1); Alkaline Phosphatase 118 U/L (38-126); Anion Gap 4 mmol/L (8-16); Aspartate Amino Transferase 23 U/L (17-59); Bilirubin,Total 0.5 mg/dL (0.2-1.3); Blood Urea Nitrogen 22 mg/dL (9-20); Calcium 9.1 mg/dL (8.4-10.2); Carbon Dioxide 25 mmol/L (22-30); Chloride 108 mmol/L (98-107); Cholesterol 143 mg/dL (0-200); Estimated Glomerular Filt Rate > 60; Glucose 83 mg/dL (65-110); HDL Direct 33 mg/dL; Potassium 3.8 mmol/L (3.4-5.0); Sodium 137 mmol/L (137-145); Triglycerides 88 mg/dL (<150)
[2023-12-04 10:31] LABS: LDL Cholesterol Direct 84 mg/dL
[2023-12-04 10:39] LABS: Creatinine Urine 87.3 mg/dL
[2023-12-04 10:51] LABS: Prostate Specific Antigen 0.9 ng/mL (< OR = 4.0)
[2023-12-04 11:16] LABS: Vitamin D 25 Hydroxy 32.5 ng/mL
[2023-12-04 11:53] LABS: Microalbumin Urine Random > 1140.0 mg/L (0-16.7)
== END 2023-12-04 08:47 | disposition home or self-care (01) ==
PROVIDERS: PCP Family Medicine; Visit Provider Family Medicine
DX: E78.2 Mixed hyperlipidemia (principal); E55.9 Vitamin D deficiency, unspecified; E11.65 Type 2 diabetes mellitus with hyperglycemia; I11.0 Hypertensive heart disease with heart failure; I50.32 Chronic diastolic (congestive) heart failure; Z86.73 Personal history of transient ischemic attack (TIA), and cerebral infarction without residual deficits; Z12.5 Encounter for screening for malignant neoplasm of prostate
CPT/HCPCS: 36415; 80053; 80061; 81001; 82043; 82306; 83036; 84153; 84443; 85025; G0103

== ENCOUNTER 2024-04-05 07:58 | Outpatient (CLI) | payer MEDICARE, SELFPAY ==
[2024-04-05 09:07] LABS: Alanine Aminotransferase 17 U/L (6-50); Albumin Level 3.7 g/dL (3.5-5.1); Alkaline Phosphatase 128 U/L (38-126); Anion Gap 7 mmol/L (4-12); Aspartate Amino Transferase 20 U/L (17-59); Bilirubin,Total 0.5 mg/dL (0.2-1.3); Blood Urea Nitrogen 22 mg/dL (9-20); Calcium 8.9 mg/dL (8.4-10.2); Carbon Dioxide 25 mmol/L (22-30); Chloride 108 mmol/L (98-107); Cholesterol 108 mg/dL (0-200); Estimated Glomerular Filt Rate > 60; Glucose 146 mg/dL (65-110); HDL Direct 37 mg/dL; Potassium 4.1 mmol/L (3.4-5.0); Sodium 140 mmol/L (137-145); Triglycerides 44 mg/dL (<150)
[2024-04-05 09:10] LABS: Hemoglobin A1C 7.5 % (<5.7)
[2024-04-05 09:18] LABS: LDL Cholesterol Direct 64 mg/dL
[2024-04-05 09:28] LABS: Appearance Urine Clear (Clear); Bacteria Urine None Seen /hpf; Bilirubin Urine Negative (Negative); Blood Urine Negative (Negative); Color Urine Yellow (Yellow); Glucose Urine UA Negative (Negative); Ketones Urine Negative (Negative); Leukocyte Esterase Ur Negative LEU/UL (Negative); Nitrate Urine Negative (Negative); Non Pathogenic Casts 0-2; Protein Urine 2+ mg/dL (Negative); RBC Urine 0-2 /hpf (0-2); Specific Grav Ur 1.012 (1.001-1.035); Squamous Epithelial Cell Urine None Seen /hpf (Few); Urobilinogen Urine 0.2 mg/dL (<2.0); WBC Urine 0-5 /hpf (0-3)
[2024-04-05 09:29] LABS: Add Urine Microscopic? YES
[2024-04-05 09:38] LABS: Prostate Specific Antigen 0.3 ng/mL (< OR = 4.0)
== END 2024-04-05 07:59 | disposition home or self-care (01) ==
LOC: ANHLAB 08:01
PROVIDERS: PCP Family Medicine; Visit Provider Family Medicine
DX: Z12.5 Encounter for screening for malignant neoplasm of prostate (principal); E11.65 Type 2 diabetes mellitus with hyperglycemia; E78.00 Pure hypercholesterolemia, unspecified; I50.32 Chronic diastolic (congestive) heart failure; I11.0 Hypertensive heart disease with heart failure; R82.90 Unspecified abnormal findings in urine
CPT/HCPCS: 36415; 80053; 80061; 81001; 83036; 84153; G0103